=== PATIENT | male | born 1975 | race Caucasian/White ===

== ENCOUNTER 2024-06-20 09:26 | Emergency (ER) | payer OTHER, SELFPAY ==
[2024-06-20 09:31] VITALS: BP 177/127; PULSE 108; TEMP 36.8; O2SAT 98; BMI 29.0
--- NOTE | 2024-06-20 09:36 | US_ITS ---
[facility] [place] [id number] Patient Name: CAM GALINDO MRN: [id number] date: 1975 Sex: M Assigned Patient Location: ED.MAIN Current Patient Location: ED.MAIN Accession/Order Number: [id number] Exam Date: 06/20/2024 09:56 Report Date: 06/20/2024 10:51 At the request of: HUEY ODONNELL Procedure: US venous doppler LE LT EXAMINATION: US venous doppler LE LT HISTORY: Pain and swelling COMPARISON: No relevant comparison available. FINDINGS: REGION: Right lower extremity THROMBI: Occlusive thrombus within proximal great saphenous vein (superficial vein). Short segment of thrombus within distal anterior tibial veins. COMPRESSIBILITY: Noncompressible segments. FLOW: Normal waveform and antegrade flow between 5 and 20 cm/s within remainder of deep system. OTHER: (Findings and images discussed with lead injection mold technician.) US/US venous doppler LE LT IMPRESSION: 1. Short segment of deep vein thrombus within right lower extremity distal anterior tibial veins. 2. Occlusive thrombus within right great saphenous vein extending to the saphenofemoral junction which would be concerning for extending into the deep system. Electronically authenticated by: LAVELL AVILA Date: 06/20/2024 10:51
--- NOTE | 2024-06-20 09:43 | ED_ITS ---
HPI - Extremity Problem General Chief complaint: Extremity Problem, Nontraumatic Stated complaint: LOWER EXTREMITY SWOLLEN, LEFT Time Seen by Provider: 06/20/24 09:31 Source: patient Mode of arrival: walk-in History of Present Illness HPI Narrative: 49-year-old male presents for pain and swelling to the inside of his left thigh which she has had for the last day or 2. He gives no history of injury. He is worried about a blood clot which she has never had previously. No chest pain or shortness of breath or symptoms in the right leg. No symptoms in the left calf area. Related Data Previous Rx's ?Medication ?Instructions ?Recorded rivaroxaban 15 mg tablet (Xarelto) 15 mg PO BID 21 days #42 tabs 06/20/24 Allergies Allergy/AdvReac Type Severity Reaction Status Date / Time No Known Drug Allergies Allergy Verified 06/20/24 09:31 Review of Systems ROS Narrative A ten point review of systems is negative except as noted above. PFSH PFSH Social History Little interest or pleasure in doing things: not at all Feeling down, depressed, or hopeless: not at all Exam Narrative Exam Narrative: Nurses note and vital signs reviewed and patient is not hypoxic. General: The patient appears well and in no apparent distress. Patient is resting comfortably on cart. Skin: Warm, dry, no pallor noted. There is no rash noted. Head: Normocephalic, atraumatic Eye: Normal conjunctiva, no drainage Ears, Nose, Mouth, and Throat: oral mucosa is moist. Cardiovascular: Regular Rate and Rhythm Respiratory: Patient is in no distress, no accessory muscle use, lungs are cl ear to auscultation, no wheezing, rales or rhonchi Back: non-tender GI: Soft and nontender Musculoskeletal: The left calf has no swelling in the right leg has no swelling. The left medial thigh has some erythema and induration and what I believe is a palpable superficial vein which is firm. Neurological: A&O, normal speech Psychiatric: Cooperative Constitutional Vital Signs, click to edit/add: Last Vital Signs Temp 98.3 F 06/20/24 09:31 Pulse 108 H 06/20/24 09:31 Resp 18 06/20/24 11:46 BP 151/98 H 06/20/24 11:46 Pulse Ox 98 06/20/24 09:31 O2 Del Method Room Air 06/20/24 09:31 Course Vital Signs Vital signs: Vital Signs Temperature 98.3 F 06/20/24 09:31 Pulse Rate 108 H 06/20/24 09:31 Respiratory Rate 18 06/20/24 09:31 Blood Pressure 177/127 H 06/20/24 09:31 Pulse Oximetry 98 06/20/24 09:31 Oxygen Delivery Method Room Air 06/20/24 09:31 Temperature 98.3 F 06/20/24 09:31 Pulse Rate 108 H 06/20/24 09:31 Respiratory Rate 18 06/20/24 11:46 Blood Pressure 151/98 H 06/20/24 11:46 Pulse Oximetry 98 06/20/24 09:31 Oxygen Delivery Method Room Air 06/20/24 09:31 MDM - Extremity (Nontraumatic) MDM Narrative Medical decision making narrative: Small segment DVT is noted in the anterior tibial vein and superficial thrombophlebitis in the greater saphenous. I have paged Dr. Tatum and the patient will be discharged home on Xarelto. The patient was advised the risks of taking Xarelto and other blood thinners and was advised of the importance of follow-up with Dr. Tatum. Differential Diagnosis Differential diagnosis: Likely other (DVT, SVT) Lab Data Labs: Lab Results 06/20/24 Range/Units 09:40 WBC 14.0 H (4.0-11.0) 10^3/uL RBC 4.74 (4.70-6.10) 10^6/uL Hgb 15.5 (14.0-18.0) g/dL Hct 43.6 (42.0-54.0) % MCV 92.0 (80.0-94.0) fL MCH 32.7 (25.9-34.0) pg MCHC 35.6 H (29.9-35.2) g/dL RDW 12.9 (11.0-15.0) % Plt Count 267 (150-450) 10^3/uL MPV 10.3 (9.5-13.5) fL Neut % (Auto) 66.7 (43.0-75.0) % Lymph % (Auto) 23.5 (20.5-60.0) % Collier % (Auto) 7.6 (1.7-12.0) % Eos % (Auto) 1.4 (0.9-7.0) % Baso % (Auto) 0.5 (0.2-2.0) % Neut # (Auto) 9.3 H (1.4-6.5) 10^3/uL Lymph # (Auto) 3.3 (1.2-3.8) 10^3/uL Collier # (Auto) 1.1 H (0.3-0.8) 10^3/uL Eos # (Auto) 0.2 (0.0-0.7) 10^3/uL Baso # (Auto) 0.1 (0.0-0.1) 10^3/uL Abs Immat Gran (auto) 0.04 H (0.00-0.03) 10^3/uL Imm/Tot Granulo (auto) 0.3 (0.0-0.5) % PT 10.7 (9.0-11.6) sec INR 1.01 APTT 33.2 (22.3-36.2) sec Sodium 140 (136-145) mmol/L Potassium 3.8 (3.5-5.1) mmol/L Chloride 101 (98-107) mmol/L Carbon Dioxide 25.9 (21.0-32.0) mmol/L Anion Gap 16.9 BUN 17.0 (7.0-18.0) mg/dL Creatinine 1.01 (0.70-1.30) mg/dL Est GFR ( Amer) >60 (>=60 mL/min/1.73m^2) Est GFR (Non-Af Amer) >60 (>=60 mL/min/1.73m^2) BUN/Creatinine Ratio 16.8 Glucose 110 H (74-106) mg/dL Calcium 9.9 (8.5-10.1) mg/dL Imaging Data Venous Doppler: Radiologist's impression: ITS Impressions Venous Doppler Study 06/20/24 09:36 IMPRESSION: 1. Short segment of deep vein thrombus within right lower extremity distal anterior tibial veins. 2. Occlusive thrombus within right great saphenous vein extending to the saphenofemoral junction which would be concerning for extending into the deep system. Electronically authenticated by: LAVELL AVILA Date: 06/20/2024 10:51 Discharge Plan Discharge Chief Complaint: Extremity Problem, Nontraumatic Clinical Impression: DVT (deep venous thrombosis), Superficial thrombophlebitis Patient Disposition: Home, Self-Care Time of Disposition Decision: 13:10 Condition: Good Mode of Transportation: Private Vehicle Prescriptions / Home Meds: New Xarelto 15 mg tablet 15 mg PO BID 21 Days Qty: 42 0RF Rx Instructions: must administer with a meal/food Print Language: Cook Islander Instructions: Superficial Thrombophlebitis (ED), Deep Vein Thrombosis (ED) Additional Instructions: Follow-up with Dr. Tatum. You will need to see him for continued Xarelto prescription. Referrals: Shanelle Tatum MD [Physician] - 1 week Physician,Non-MD Ismael [Primary Care Provider] - 1 week
[2024-06-20 09:50] LABS: Basophils Absolute Auto 0.1 10^3/uL (0.0-0.1); Basophils Percent Auto 0.5 % (0.2-2.0); Eosinophils Absolute Auto 0.2 10^3/uL (0.0-0.7); Eosinophils Percent Auto 1.4 % (0.9-7.0); Hematocrit 43.6 % (42.0-54.0); Hemoglobin 15.5 g/dL (14.0-18.0); Immature Granulocytes Abs Auto 0.04 10^3/uL (0.00-0.03); Immature Granulocytes Pct Auto 0.3 % (0.0-0.5); Lymphocytes Absolute Auto 3.3 10^3/uL (1.2-3.8); Lymphocytes Percent Auto 23.5 % (20.5-60.0); Mean Corpuscular HGB Conc 35.6 g/dL (29.9-35.2); Mean Corpuscular Hemoglobin 32.7 pg (25.9-34.0); Mean Platelet Volume 10.3 fL (9.5-13.5); Monocytes Absolute Auto 1.1 10^3/uL (0.3-0.8); Monocytes Percent Auto 7.6 % (1.7-12.0); Neutrophils Absolute Auto 9.3 10^3/uL (1.4-6.5); Neutrophils Percent Auto 66.7 % (43.0-75.0); Platelet Count 267 10^3/uL (150-450); Red Blood Count 4.74 10^6/uL (4.70-6.10); Red Cell Distribution Width 12.9 % (11.0-15.0)
[2024-06-20 09:59] LABS: Anion Gap 16.9; BUN Creatinine Ratio 16.8; Calcium 9.9 mg/dL (8.5-10.1); Carbon Dioxide 25.9 mmol/L (21.0-32.0); Chloride 101 mmol/L (98-107); Estimated GFR (African America >60 (>=60 mL/min/1.73m^2); Estimated GFR (Non-African Ame >60 (>=60 mL/min/1.73m^2); Glucose 110 mg/dL (74-106); Potassium 3.8 mmol/L (3.5-5.1); Sodium 140 mmol/L (136-145)
[2024-06-20 10:08] LABS: INR 1.01; Partial Thromboplastin Time 33.2 sec (22.3-36.2); Prothrombin Time 10.7 sec (9.0-11.6)
--- NOTE | 2024-06-20 10:47 | PC.NURSE ---
pt denies current needs at this time. remains at bedside. pending results.
--- NOTE | 2024-06-20 10:56 | PC.NURSE ---
nursing report given to Elyssa CHIRINOS, all questions answered. pt pending dispo at this time.
[2024-06-20 11:46] VITALS: BP 151/98
== END 2024-06-20 13:41 | disposition home or self-care (01) ==
PROVIDERS: Emergency Provider Emergency Medicine
DX: I82.442 Acute embolism and thrombosis of left tibial vein (principal); I80.02 Phlebitis and thrombophlebitis of superficial vessels of left lower extremity
CPT/HCPCS: 36415; 80048; 85025; 85610; 85730; 93971; 99284

== ENCOUNTER 2024-06-21 09:31 | Inpatient (IN) | payer OTHER, SELFPAY ==
[2024-06-21] VITALS (15 sets, daily range): BP systolic 120–156; BP diastolic 81–99; PULSE 60–128; TEMP 36.7–37.8; O2SAT 88–100; BMI 29.0; BMI 28.7
--- NOTE | 2024-06-21 09:48 | CT_ITS ---
The [address] [address] Patient Name: CAM GALINDO MRN: [id number] date: 1975 Sex: M Assigned Patient Location: ER Current Patient Location: Accession/Order Number: [id number] Exam Date: 06/21/2024 10:10 Report Date: 06/21/2024 10:45 At the request of: ZOHREH SALMERON Procedure: CT angio chest EXAM: CT angio chest HISTORY: pe COMPARISON: None. TECHNIQUE: Following intravenous administration of 100 mL of Omnipaque 350, axial soft tissue and lung windows of the chest were performed with coronal and sagittal reformats. 3-D MIPS reconstructions were created and reviewed. CT dose reduction technique was used including Automated Exposure Control. . Findings: The heart is mildly enlarged. No pericardial effusion. The thoracic aorta is normal caliber. There is adequate opacification of the pulmonary arteries. There is a left upper lobe segmental pulmonary embolism extending into a subsegmental branch. The RV to LV ratio remains normal. The central airways are patent. No pneumothorax. No pleural effusion. No focal consolidation. Mild bilateral atelectasis. No enlarged mediastinal, hilar, axillary or supraclavicular lymph nodes. The no aggressive sclerotic or lytic osseous lesions. Multilevel degenerative thoracic spondylosis. Impression 1. Pulmonary embolism. The results of the study were discussed with Zohreh Salmeron at 1044 and 06/21/2024 Electronically authenticated by: JACOBY SIMMONS Date: 06/21/2024 10:45
[2024-06-21] MEDS: MORPHINE SULFATE 4 MG/ML VIAL IV (10:01)
--- NOTE | 2024-06-21 10:01 | ED.GENADUL1 ---
HPI HPI - General Adult General Chief complaint: Extremity Injury, Lower Stated complaint: LOWER EXTREMITY PAIN Time Seen by Provider: 06/21/24 09:33 Source: patient Mode of arrival: walk-in Limitations: no limitations History of Present Illness HPI narrative: Patient presents to ED complaining of left lower extremity pain. He was here yesterday for pain and swelling. He was diagnosed with a DVT and superficial thrombophlebitis. He was sent home on Xarelto. He said he was not sent home with anything for pain and he had trouble sleeping all night because the leg was tender. He came in tachycardic but not hypoxic. He is denying any chest pain or pain with breathing but his tachycardia is pretty significant. He has normal pulses in his foot and it is not cool to touch. He denies abdominal pain or any other complaints at this time, he just states he has pain in his thigh from the clot. Related Data Previous Rx's ?Medication ?Instructions ?Recorded rivaroxaban 15 mg tablet (Xarelto) 15 mg PO BID 21 days #42 tabs 06/20/24 Allergies Allergy/AdvReac Type Severity Reaction Status Date / Time No Known Drug Allergies Allergy Verified 06/20/24 09:31 Opioid HPI Opioid Management Most Recent Opioid Data: Last Pain Scale 4 06/21/24 10:09 06/21/24 Last ED Pain Assessment 06/21/24 10:09 Review of Systems ROS Status of ROS 10 or more systems reviewed and unremarkable except as noted in history and below PFSH PFSH Social History Little interest or pleasure in doing things: not at all Feeling down, depressed, or hopeless: not at all Exam Narrative Exam Narrative: General: alert, no acute distress Cardiovascular: Tachycardia, normal peripheral perfusion. Respiratory: Lungs CTA, respirations non labored. Extremities: Diffuse swelling to the left lower extremity. Normal distal pulses and sensation. Leg is warm to touch. 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 Neurological: oriented x 4, LOC appropriate for age. Constitutional Vital Signs, click to edit/add: Last Vital Signs Temp 98.1 F 06/21/24 09:37 Pulse 102 H 06/21/24 10:22 Resp 18 06/21/24 10:22 BP 146/99 H 06/21/24 10:22 Pulse Ox 96 06/21/24 10:22 Course Vital Signs Vital signs: Vital Signs Temperature 98.1 F 06/21/24 09:37 Pulse Rate 128 H 06/21/24 09:37 Respiratory Rate 18 06/21/24 09:37 Blood Pressure 156/98 H 06/21/24 09:37 Pulse Oximetry 100 06/21/24 09:37 Temperature 98.1 F 06/21/24 09:37 Pulse Rate 102 H 06/21/24 10:22 Respiratory Rate 18 06/21/24 10:22 Blood Pressure 146/99 H 06/21/24 10:22 Pulse Oximetry 96 06/21/24 10:22 Medical Decision Making MDM Narrative Medical decision making narrative: Patient was found to have a PE on the CT angio chest. Patient is stable, no right heart strain no hypotension. His heart rate has improved with pain medication down to 100. I spoke to Dr. Warren who is happy to admit the patient but also wanted me to run it by Dr. Tatum. I spoke to Dr. Tatum who states that he is fine to stay here. Heparin was started. Patient is comfortable with plan for admission here to [facility]. Patient will be admitted to medical telemetry floor. Differential Diagnosis Differential Diagnosis: PE, DVT, cellulitis, leg pain Medical Records Medical records reviewed: Yes I reviewed the patient's medical records Lab Data Lab results reviewed: Yes I reviewed the patient's lab results Critical Care Time Critical Care Time Critical Care Time: Yes Total Critical Care Time: 120 Attestation: PE, heparin bolus and drip started tachycardia. Discharge Plan Discharge Chief Complaint: Extremity Injury, Lower Clinical Impression: DVT (deep venous thrombosis), Pulmonary embolism Patient Disposition: Admitted As Inpatient Time of Disposition Decision: 12:42 Condition: Fair Prescriptions / Home Meds: No Action Xarelto 15 mg tablet 15 mg PO BID 21 Days Qty: 42 0RF Rx Instructions: must administer with a meal/food Print Language: Divehi Referrals: Physician,Non-Staff, MD [Primary Care Provider] - 1 week
[2024-06-21] MEDS: HEPARIN SODIUM 25,000 UNIT/500 ML D5W IV.SOLN 30 UNIT IV (11:08)
[2024-06-21] MEDS: HEPARIN SODIUM (PORCINE) 5,000 UNIT/ML VIAL 7600 UNIT IV (11:09)
--- NOTE | 2024-06-21 12:42 | ECG_ITS ---
[facility] Test Date: 2024-06-21 Pat Name: CAM GALINDO Department: Room: - Gender: Male Reporter: : 1975 Requested By: [id number] Order Number: [id number] Reading MD: ANAHY FERNANDEZ Measurements Intervals [place] Rate: 89 P: 37 [place]: 178 QRS: -2 QRSD: 84 T: 16 QT: 354 QTc: 401 Interpretive Statements 1100 Sinus rhythm 5211 Minimal voltage criteria for LVH, may be normal variant 9130 borderline ECG No previous ECG available for comparison Electronically Signed On 06-21-2024 20:09:29 EST by ANAHY FERNANDEZ
--- NOTE | 2024-06-21 12:46 | CA_ITS ---
Patient Name: CAM GALINDO MR#: [id number] : 1975 Exam Date: 06/21/2024 Ordering Doctor: Megan Warren . ECHOCARDIOGRAM REPORT PROCEDURE: CA ECHO DOPPLER COMPLETE INDICATIONS: Acute Pulmonary embolism, DVT COMPARISON: None. DESCRIPTION: COMPLETE ECHOCARDIOGRAM Real-time transthoracic echocardiography with 2D, M-mode, spectral and color flow Doppler performed. QUALITY: Technical quality was good. LEFT VENTRICLE: Normal chamber size. Moderate concentric left ventricular hypertrophy. Global left ventricular systolic function is normal. LV EF: Estimated left ventricular ejection fraction is 55-60 %. DIASTOLIC: Normal diastolic function. ATRIAL SEPTUM: LEFT ATRIUM: Normal chamber size. RIGHT ATRIUM: Normal chamber size. RIGHT VENTRICLE: Normal chamber size. Normal right ventricular systolic function. TRICUSPID VALVE: Normal mobility and thickness. No stenosis with trivial regurgitation. Unable to assess right-sided pressures due to lack of measurable tricuspid regurgitation. MITRAL VALVE: Normal mobility and thickness. No evidence of mitral valve stenosis. Mild mitral annular calcification. No mitral regurgitation. AORTIC VALVE: Normal trileaflet appearance. No visible sclerosis. Normal leaflet mobility. No evidence of aortic valve stenosis. No aortic regurgitation. AORTIC ROOT: Normal diameter and appearance. The ascending aorta is mildly dilated, measuring 3.8 cm. PULMONIC VALVE: Normal thickness and mobility. No stenosis. Trivial regurgitation. PERICARDIUM: No evidence of pericardial effusion. IVC: Collapses with inspirations. PLEURA: CONCLUSION: 1. Moderate concentric left ventricular hypertrophy with normal systolic function. LV EF is estimated at 55 to 60%. 2. Normal right ventricular size and systolic function. 3. Normal diastolic function. 4. No significant valvular dysfunction. 5. Mildly dilated ascending aorta. Adult Echocardiography Procedure Report Left Ventricle LVEDD (3.7 - 5.6 cm): 4.83 cm LVESD (2.2 - 4.0 cm): 3.39 cm LVIVS thickness (0.6 - 1.2 cm): 1.56 cm LVPW thickness (0.5 - 1.0 cm): 1.52 cm LVOT Max Gradient: 3 mm[Hg] Peak Velocity (LVOT): 84.40 cm/s Mean Velocity (LVOT): 55.80 cm/s LVOT Diameter 2.50 cm Left Ventricular Ejection Fraction: 55-60 % Left Atrium LA Volume Index (2D A2C): 14701 mm3 Left Atrium Systolic Dimension: 4.10 cm Mitral Valve MV E to A Ratio: 0.80 Mitral Valve A-Wave Peak Velocity: 62.80 cm/s Mitral Valve E-Wave Peak Velocity: 52.80 cm/s Right Ventricle Aorta AO Root Diam: 3.60 cm Aortic Valve AoV Area (Peak Justin): 4.06 cm2 AoV Area (VTI): 4.36 cm2 Peak Velocity(Antegrade Flow): 102.00 cm/s Peak Gradient(Antegrade Flow): 4 mm[Hg] Mean Velocity(Antegrade Flow): 73.90 cm/s Mean Gradient(Antegrade Flow): 3 mm[Hg] Velocity Time Integral: 16.00 cm Tricuspid Valve Peak Velocity (Regurgitant Flow): 238.00 cm/s Peak Velocity: 71.90 cm/s Pulmonic Valve Peak Velocity: 81.40 cm/s, 95.00 cm/s Peak Gradient: 3 mm[Hg] Right Atrium Dictated by: Aashish Rios M.D. on 06/21/2024 at 17:10 Approved by: Aashish Rios M.D. on 06/21/2024 at 17:13
--- NOTE | 2024-06-21 12:50 | PM.HP ---
HPI H&P: HPI History of Present Illness Chief complaint: LOWER EXTREMITY PAIN, PE, DVT Narrative: Patient is a 49 y.o white male with history of varicose veins, psoriasis that presented to the ER yesterday after 3 day history of left leg pain. He works at [employer] and had been up on it working, noticed some swelling and pain from the groin to the back of calf. Patient presented to the ER where ultrasound showed a Great Saphenous thrombus extending to the femoral vein. He filled and took 2 of the Xarelto, presented back to the ER today with increased swelling, pain and tachycardia. CTA of the chest was performed which showed acute PE of the left upper segment extending into the subsegmental branch. Patient was placed on a heparin drip. Trop 4.3, proBNP 13. He denies any family history of blood clots, he has never had a blood clot before. He is a smoker, no recent travel, no recent illnesses, has had COVID x 2. No recent drug use, no supplements, no recent procedures. No personal history of cancer. Opioid HPI Opioid Management Most Recent Pain and Opioid Data: Last Pain Scale 4 06/21/24 16:32 06/21/24 Last Pain Assessment 06/21/24 16:27 Last ED Pain Assessment 06/21/24 10:09 Last MAR Pain Assessment 06/21/24 16:32 Last ORT Total Score 0 06/21/24 13:03 06/21/24 Last ORT Risk Category Low Risk 06/21/24 13:03 06/21/24 Review of Systems ROS Narrative ROS: a complete review of systems were reviewed with patient and are positive as below or listed in History of Chief Complaint. General: no fever, chills, night sweats Head: no headache, trauma, visual changes, nausea or vomiting Skin: no reported rashes, itching or sores Eyes: no blurriness of vision Ears: no reported hearing loss, vertigo, earache, or tinnitus Throat: no sore throat, hoarseness, swelling of neck, or tongue pain Heart: no chest pain, but increased HR Lungs: no shortness of breath or cough GI: no diarrhea or vomiting/nausea Urinary: no urinary urgency, frequency or pain Neuro: no numbness or tingling, left leg pain HEM: no bleeding issues or bruising ENDO: no thyroid problems Psych: no anxiety or depression PFSH PFSH Medical History (Updated 06/21/24 @ 16:50 by Megan Warren DO) Tobacco abuse ?Z72.0 - Tobacco use (ICD-10) Psoriasis ?L40.9 - Psoriasis, unspecified (ICD-10) Social History Highest level of school completed/degree received: high school graduate Little interest or pleasure in doing things: not at all Feeling down, depressed, or hopeless: not at all Meds Home Medications and Allergies Home Medications ?Medication ?Instructions ?Recorded ?Confirmed ?Type rivaroxaban 15 mg tablet (Xarelto) 15 mg PO BID 21 days #42 tabs 06/20/24 06/21/24 Rx Allergies Allergy/AdvReac Type Severity Reaction Status Date / Time No Known Drug Allergies Allergy Verified 06/20/24 09:31 Exam Narrative Exam Narrative: General: Patient is alert, and oriented to person, place and time with normal affect, proper hygiene Skin: erythema and warmth on the right inner thigh that extends past the knee, and into the left calf Head: atraumatic, acephalic Eyes: PERRLA, no nystagmus present, conjunctiva clear, no scleral icterus Ears: normal Tympanic Membrane, normal gross auditory acuity Nose: symmetric, no discharge, no maxillary or frontal sinus tenderness Mouth/Throat: no erythema, exudate, or tonsillar enlargement, normal dentition Neck: no masses palpated, normal thyroid, no JVD or audible carotid bruits Heart: Normal rate and rhythm, no murmurs/rubs/gallops Lungs: no audible wheezes, crackles and normal breath sounds all lung marc Abdomen: Normal audible bowel sounds, no distension, No palpable masses, no organomegaly, no rebound/guarding/ or rigidity Neuro: CN II-X grossly intact, normal sensation upper and lower extremities Constitutional Vital Signs, click to edit/add: Last Vital Signs Temp 98.1 F 06/21/24 09:37 Pulse 102 H 06/21/24 10:22 Resp 18 06/21/24 10:22 BP 146/99 H 06/21/24 10:22 Pulse Ox 96 06/21/24 10:22 Assessment and Plan Assessment and Plan (1) Pulmonary embolism: Assessment and Plan: trop and proBNP negative, check ECHO, continue heparin drip. transition to Xarelto tomorrow. Will need close follow up with PCP for hypercoag work up, PSA and colonoscopy. Patient is encouraged to stop smoking. Qualifiers: Pulmonary embolism type: single subsegmental (without acute cor pulmonale) Qualified Code(s): I26.93 - Single subsegmental thrombotic pulmonary embolism without acute cor pulmonale (2) Superficial thrombophlebitis: Assessment and Plan: would benefit from compression but given the extent, treat with pain meds. Qualifiers: Superficial thrombophlebitis-Involved body area: lower extremity Laterality: left Qualified Code(s): I80.02 - Phlebitis and thrombophlebitis of superficial vessels of left lower extremity (3) DVT (deep venous thrombosis): Assessment and Plan: heparin drip and transition to Xarelto tomorrow Qualifiers: DVT location: lower extremity Affected thrombotic vein of extremity: femoral Chronicity: acute Laterality: left Qualified Code(s): I82.412 - Acute embolism and thrombosis of left femoral vein (4) Psoriasis: (5) Tobacco abuse: Plan Patient is a full code continue heparin drip Patient is inpatient status given his acute PE, and Acute DVT he is at high risk of respiratory decompensation and .
[2024-06-21 13:59] LABS: Basophils Absolute Auto 0.1 10^3/uL (0.0-0.1); Basophils Percent Auto 0.4 % (0.2-2.0); Eosinophils Absolute Auto 0.2 10^3/uL (0.0-0.7); Eosinophils Percent Auto 1.2 % (0.9-7.0); Hematocrit 46.4 % (42.0-54.0); Immature Granulocytes Abs Auto 0.04 10^3/uL (0.00-0.03); Immature Granulocytes Pct Auto 0.3 % (0.0-0.5); Lymphocytes Absolute Auto 3.2 10^3/uL (1.2-3.8); Lymphocytes Percent Auto 23.8 % (20.5-60.0); Mean Corpuscular HGB Conc 34.5 g/dL (29.9-35.2); Mean Corpuscular Hemoglobin 32.2 pg (25.9-34.0); Mean Corpuscular Volume 93.4 fL (80.0-94.0); Mean Platelet Volume 10.4 fL (9.5-13.5); Monocytes Absolute Auto 1.2 10^3/uL (0.3-0.8); Monocytes Percent Auto 8.8 % (1.7-12.0); Neutrophils Absolute Auto 8.8 10^3/uL (1.4-6.5); Neutrophils Percent Auto 65.5 % (43.0-75.0); Platelet Count 276 10^3/uL (150-450); Red Blood Count 4.97 10^6/uL (4.70-6.10); White Blood Count 13.4 10^3/uL (4.0-11.0)
[2024-06-21 14:26] LABS: Alanine Aminotransferase 24 U/L (16-63); Albumin Level 3.9 g/dL (3.4-5.0); Alkaline Phosphatase 92 U/L (46-116); Aspartate Amino Transferase 11 U/L (15-37); BUN Creatinine Ratio 12.7; Bilirubin Total 1.4 mg/dL (0.2-1.0); Calcium 9.8 mg/dL (8.5-10.1); Carbon Dioxide 26.2 mmol/L (21.0-32.0); Chloride 101 mmol/L (98-107); Estimated GFR (African America >60 (>=60 mL/min/1.73m^2); Estimated GFR (Non-African Ame >60 (>=60 mL/min/1.73m^2); Glucose 110 mg/dL (74-106); Potassium 4.2 mmol/L (3.5-5.1); Sodium 139 mmol/L (136-145); Thyroid Stimulating Hormone 2.126 uIU/mL (0.358-3.740); Total Protein 7.9 g/dL (6.4-8.2)
--- NOTE | 2024-06-21 14:26 | CM.NOTE ---
Went to see pt for discharge planning, echo being completed at this time.
[2024-06-21] MEDS: OXYCODONE HCL/ACETAMINOPHEN 5MG/325MG 1 TAB PO ×2 (14:34→20:13)
--- NOTE | 2024-06-21 14:54 | CM.NOTE ---
Discussed discharge planning with pt, pt still working since DVT initially diagnosed but struggling with pain in lower leg. Pt was taking Xarelto at home for DVT but pain had increased. Pt denies any discharge needs at this time.
[2024-06-21 15:03] LABS: Troponin I High Sensitivity 4.3 pg/mL (4.0-76.1)
[2024-06-21] MEDS: MORPHINE SULFATE 2 MG/ML SYRINGE 1 MG IV ×2 (17:23→23:20)
[2024-06-21 17:37] LABS: PTT Heparin Monitor 44.4 sec (48.2-68.6)
[2024-06-21] MEDS: ACETAMINOPHEN 325 MG TABLET 650 MG PO (20:08)
[2024-06-21 23:45] LABS: PTT Heparin Monitor 42.7 sec (48.2-68.6)
[2024-06-22] VITALS (13 sets, daily range): BP systolic 121–136; BP diastolic 82–88; PULSE 82–98; TEMP 36.7–37.6; O2SAT 91–94
[2024-06-22] MEDS: HEPARIN SODIUM 25,000 UNIT/500 ML D5W IV.SOLN 34 UNIT IV (03:32)
[2024-06-22] MEDS: OXYCODONE HCL/ACETAMINOPHEN 5MG/325MG 1 TAB PO ×2 (03:32→10:22)
[2024-06-22 06:11] LABS: Basophils Absolute Auto 0.1 10^3/uL (0.0-0.1); Basophils Percent Auto 0.7 % (0.2-2.0); Eosinophils Absolute Auto 0.2 10^3/uL (0.0-0.7); Hematocrit 45.1 % (42.0-54.0); Hemoglobin 15.4 g/dL (14.0-18.0); Immature Granulocytes Abs Auto 0.03 10^3/uL (0.00-0.03); Immature Granulocytes Pct Auto 0.3 % (0.0-0.5); Lymphocytes Absolute Auto 2.5 10^3/uL (1.2-3.8); Lymphocytes Percent Auto 23.5 % (20.5-60.0); Mean Corpuscular HGB Conc 34.1 g/dL (29.9-35.2); Mean Corpuscular Hemoglobin 31.9 pg (25.9-34.0); Mean Corpuscular Volume 93.4 fL (80.0-94.0); Mean Platelet Volume 10.3 fL (9.5-13.5); Monocytes Percent Auto 9.3 % (1.7-12.0); Neutrophils Absolute Auto 6.9 10^3/uL (1.4-6.5); Neutrophils Percent Auto 64.2 % (43.0-75.0); Platelet Count 262 10^3/uL (150-450); Red Blood Count 4.83 10^6/uL (4.70-6.10); Red Cell Distribution Width 13.2 % (11.0-15.0); White Blood Count 10.8 10^3/uL (4.0-11.0)
[2024-06-22 06:28] LABS: Alanine Aminotransferase 21 U/L (16-63); Albumin Globulin Ratio 0.8; Albumin Level 3.3 g/dL (3.4-5.0); Alkaline Phosphatase 85 U/L (46-116); Anion Gap 13.8; Aspartate Amino Transferase 11 U/L (15-37); BUN Creatinine Ratio 15.2; Bilirubin Total 1.1 mg/dL (0.2-1.0); Calcium 8.8 mg/dL (8.5-10.1); Carbon Dioxide 25.6 mmol/L (21.0-32.0); Chloride 101 mmol/L (98-107); Cholesterol 148 mg/dL (<=200); Estimated GFR (African America >60 (>=60 mL/min/1.73m^2); Estimated GFR (Non-African Ame >60 (>=60 mL/min/1.73m^2); Globulin 3.9 g/dL; Glucose 123 mg/dL (74-106); HDL Cholesterol 37 mg/dL (40-60); Potassium 4.4 mmol/L (3.5-5.1); Sodium 136 mmol/L (136-145); Total Protein 7.2 g/dL (6.4-8.2); Triglycerides 133 mg/dL (<=150); VLDL CHOLESTEROL 26.6 mg/dL
[2024-06-22 06:31] LABS: PTT Heparin Monitor 50.7 sec (48.2-68.6)
[2024-06-22] MEDS: RIVAROXABAN 10 MG TABLET 15 MG PO (08:30)
--- NOTE | 2024-06-22 08:57 | P.DS_ITS ---
DS: Providers Provider Date of admission: 06/21/24 12:53 Primary care physician: Non-Staff Physician, DS: Diagnosis Discharge Diagnosis (1) Pulmonary embolism: Qualifiers: Pulmonary embolism type: single subsegmental (without acute cor pulmonale) Qualified Code(s): I26.93 - Single subsegmental thrombotic pulmonary embolism without acute cor pulmonale (2) Superficial thrombophlebitis: Qualifiers: Laterality: left Superficial thrombophlebitis-Involved body area: lower extremity Qualified Code(s): I80.02 - Phlebitis and thrombophlebitis of superficial vessels of left lower extremity (3) DVT (deep venous thrombosis): Qualifiers: Affected thrombotic vein of extremity: femoral Chronicity: acute DVT location: lower extremity Laterality: left Qualified Code(s): I82.412 - Acute embolism and thrombosis of left femoral vein (4) Psoriasis: (5) Tobacco abuse: (6) Dilatation of aorta: DS: Summary Hospital Course Hospital Course: Patient is a 49 y.o white male with history of varicose veins, psoriasis that presented to the ER yesterday after 3 day history of left leg pain. He works at [employer] and had been up on it working, noticed some swelling and pain from the groin to the back of calf. Patient presented to the ER where ultrasound showed a Great Saphenous thrombus extending to the femoral vein. He filled and took 2 of the Xarelto, presented back to the ER today with increased swelling, pain and tachycardia. CTA of the chest was performed which showed acute PE of the left upper segment extending into the subsegmental branch. Patient was placed on a heparin drip. Trop 4.3, proBNP 13. He denies any family history of blood clots, he has never had a blood clot before. He is a smoker, no recent travel, no recent illnesses, has had COVID x 2. No recent drug use, no supplements, no recent procedures. No personal history of cancer. He was maintained on heparin drip overnight, Xarelto was started at 15mg BID this morning. Heparin drip stopped. Patient has done well on room air. Pain is controlled on the [place] will provide at discharge. Thyroid, cholesterol, were all normal ECHO was normal with exception of mild dilation of the Aorta at 3.8cm. This was all discussed with patient and . I have provided him with written prescription for compression stockings and als told him about LANDRY wrap He will have close follow up with Dr. Tatum, vascular and his pcp. he may return to the ER with any worsening signs or symptoms. Status at Discharge Functional status at discharge: independent ambulation Overall status at discharge: patient is progressing back to baseline Time Spent with Patient Time attestation: Total time spent providing and/or coordinating discharge services: Time spent: greater than 30 minutes Exam Narrative Exam Narrative: General: Patient is alert, and oriented to person, place and time with normal affect, proper hygiene Skin: erythema and warmth on the right inner thigh that extends past the knee, and into the left calf Head: atraumatic, acephalic Eyes: PERRLA, no nystagmus present, conjunctiva clear, no scleral icterus Ears: normal Tympanic Membrane, normal gross auditory acuity Nose: symmetric, no discharge, no maxillary or frontal sinus tenderness Mouth/Throat: no erythema, exudate, or tonsillar enlargement, normal dentition Neck: no masses palpated, normal thyroid, no JVD or audible carotid bruits Heart: Normal rate and rhythm, no murmurs/rubs/gallops Lungs: no audible wheezes, crackles and normal breath sounds all lung marc Abdomen: Normal audible bowel sounds, no distension, No palpable masses, no organomegaly, no rebound/guarding/ or rigidity Neuro: CN II-X grossly intact, normal sensation upper and lower extremities Constitutional Vital Signs, click to edit/add: Last Vital Signs Temp 99.6 F 06/22/24 08:02 Pulse 98 H 06/22/24 08:02 Resp 16 06/22/24 08:02 BP 121/82 06/22/24 08:02 Pulse Ox 93 L 06/22/24 08:02 O2 Del Method Nasal Cannula 06/22/24 08:02 O2 Flow Rate 2 06/22/24 08:02 DS: Data Data Completed and Pending Labs on day of discharge: Labs from last 24 hours 06/22/24 06/21/24 06/21/24 05:56 23:01 17:03 WBC 10.8 RBC 4.83 Hgb 15.4 Hct 45.1 MCV 93.4 MCH 31.9 MCHC 34.1 RDW 13.2 Plt Count 262 MPV 10.3 Neut % (Auto) 64.2 Lymph % (Auto) 23.5 Hardee % (Auto) 9.3 Eos % (Auto) 2.0 Baso % (Auto) 0.7 Neut # (Auto) 6.9 H Lymph # (Auto) 2.5 Hardee # (Auto) 1.0 H Eos # (Auto) 0.2 Baso # (Auto) 0.1 Abs Immat Gran (auto) 0.03 Imm/Tot Granulo (auto) 0.3 PTT (Heparin Absorb) 50.7 42.7 L* 44.4 L* Sodium 136 Potassium 4.4 Chloride 101 Carbon Dioxide 25.6 Anion Gap 13.8 BUN 14.0 Creatinine 0.92 Est GFR ( Amer) >60 Est GFR (Non-Af Amer) >60 BUN/Creatinine Ratio 15.2 Glucose 123 H Calcium 8.8 Magnesium Total Bilirubin 1.1 H AST 11 L ALT 21 Alkaline Phosphatase 85 Troponin I High Sens NT-Pro-B Natriuret Pep Total Protein 7.2 Albumin 3.3 L Globulin 3.9 Albumin/Globulin Ratio 0.8 Triglycerides 133 Cholesterol 148 LDL Cholesterol, Calc 85.0 VLDL Cholesterol 26.6 HDL Cholesterol 37 L Cholesterol/HDL Ratio 4.0 TSH 06/21/24 13:30 WBC 13.4 H RBC 4.97 Hgb 16.0 Hct 46.4 MCV 93.4 MCH 32.2 MCHC 34.5 RDW 13.0 Plt Count 276 MPV 10.4 Neut % (Auto) 65.5 Lymph % (Auto) 23.8 Hardee % (Auto) 8.8 Eos % (Auto) 1.2 Baso % (Auto) 0.4 Neut # (Auto) 8.8 H Lymph # (Auto) 3.2 Hardee # (Auto) 1.2 H Eos # (Auto) 0.2 Baso # (Auto) 0.1 Abs Immat Gran (auto) 0.04 H Imm/Tot Granulo (auto) 0.3 PTT (Heparin Absorb) Sodium 139 Potassium 4.2 Chloride 101 Carbon Dioxide 26.2 Anion Gap 16.0 BUN 13.0 Creatinine 1.02 Est GFR ( Amer) >60 Est GFR (Non-Af Amer) >60 BUN/Creatinine Ratio 12.7 Glucose 110 H Calcium 9.8 Magnesium 2.0 Total Bilirubin 1.4 H AST 11 L ALT 24 Alkaline Phosphatase 92 Troponin I High Sens 4.3 NT-Pro-B Natriuret Pep 13.0 Total Protein 7.9 Albumin 3.9 Globulin 4.0 Albumin/Globulin Ratio 1.0 Triglycerides Cholesterol LDL Cholesterol, Calc VLDL Cholesterol HDL Cholesterol Cholesterol/HDL Ratio TSH 2.126 Discharge Plan Discharge Disposition: Home, Self-Care Condition: Fair Discharge Medications: New hydrocodone-acetaminophen 5-325 mg tablet 1 tab PO Q8H PRN (Reason: pain) 3 Days Qty: 9 0RF Rx Instructions: for severe leg pain from acute DVT Continued Xarelto 15 mg tablet 15 mg PO BID 21 Days Qty: 42 0RF Rx Instructions: must administer with a meal/food Activity: increase activity as tolerated and return to work once cleared by your PCP/specialist Diet: advance to your usual diet Print Language: Swedish Patient Instructions: Pulmonary Embolism (DC), Deep Vein Thrombosis (DC) Forms: Portal Instructions Follow Up Appointments: Follow up with Dr. Tatum on 07/13/24 at 11:30 at [facility] phone number [phone]
--- NOTE | 2024-06-22 11:38 | CM.NOTE ---
Rounds made with Dr. Warren, pt will discharge to home today and f/u with PCP and Dr. Tatum (Vascular). MS service secretary will make appt for pt. Dr. Warren discussed with pt about Xarelto at discharge and LANDRY wrapping LLE.
--- NOTE | 2024-06-23 13:04 | CM.DCFOLLOWU ---
Person spoke with:patient How are you feeling?well How is your pain?still pain, just starting to take his pain medication that was prescribed to help with pain Did you understand your discharge instructions?yes Do you have any questions about your discharge instructions?no Were you given any prescriptions at discharge?yes Were you able to get your prescriptions filled?yes Do you understand how to take your medications as ordered?yes Do you have any questions about your follow up appointment and do you plan to keep your follow up appointment? no questions, follow up reviewed (in chart it says f/u with Dr. Pereira on 07/26, which is incorrect, on pt's paper it was fixed to 06/26) Is there anything else that you would like to discuss?no Questions/Comments/Concerns/Other:none
== END 2024-06-22 14:36 | disposition home or self-care (01) | DRG 299 ==
LOC: ER 12:42 → MS 13:01
PROVIDERS: Admitting Provider Family Medicine; Emergency Provider Emergency Medicine; Visit Provider Family Medicine
DX: I82.412 Acute embolism and thrombosis of left femoral vein (principal); I26.93 Single subsegmental thrombotic pulmonary embolism without acute cor pulmonale; L40.9 Psoriasis, unspecified; F17.200 Nicotine dependence, unspecified, uncomplicated; I77.819 Aortic ectasia, unspecified site; Z86.16 Personal history of COVID-19
CPT/HCPCS: 36415; 71275; 80053; 80061; 83735; 83880; 84443; 84484; 85025; 85730; 93005; 93306; 94761; 96365; 96366; 96375; 96376; 99285; J1644; J2270

== ENCOUNTER 2024-08-10 07:36 | Outpatient (RCR) | payer OTHER, SELFPAY ==
--- OUTSIDE RECORDS SUMMARY | 2024-08-14 08:53 | XMS_ITS | CCD ---
Author Organization [facility] [place] [facility] Care Team Providers Care Strike Off Machine Operator Name Role Phone No Pcp, No Pcp Primary Care Provider Unavailabl e Medications Current Medications Medication Drug Class(es) Dates Sig (Normalized) Sig (Original) apremilast 30 mg oral tablet (1 source) take 1 tablet by mouth twice daily apremilast (OTEZLA) 30 mg tablet Take 30 mg by mouth 2 (two) times a day. Active benzocaine 6 mg / menthol 10 mg oral lozenge (1 source) Standardized Chemical Allergen Start: 09-02-2020 take 1 tablet by mouth every two hours as needed benzocaine-mentho L (CHLORASEPTIC SORE THROAT) 6-10 mg lozenge Dissolve 1 lozenge in the mouth every 2 (two) hours as needed for sore throat. 18 tablet 09/02/2020 Active irbesartan 150 mg oral tablet (1 source) Angiotensin 2 Receptor Peter Start: 06-26-2024 take 1 tablet by mouth in the morning irbesartan (AVAPRO) 150 mg tablet Take 1 tablet (150 mg total) by mouth in the morning. 06/26/2024 Active rivaroxaban 20 mg oral tablet (1 source) Factor Xa Inhibitor Start: 07-10-2024 take 1 tablet by mouth in the morning XARELTO 20 mg tablet tablet Take 1 tablet (20 mg total) by mouth in the morning. 07/10/2024 Active Problems Problem Classification Problem Date Documented Da te Episodic/Chronic Phlebitis; thrombophlebitis and thromboembolism (3 sources) Deep venous thrombosis of lower extremity; Translations: [Acute embolism and thrombosis of unspecified deep veins of unspecified proximal lower extremity] Onset: 07-13-2024 07-13-2024 Episodic Pulmonary heart disease (3 sources) Pulmonary embolism; Translations: [Other pulmonary embolism without acute cor pulmonale] Onset: 07-13-2024 07-13-2024 Episodic Vital Signs Date Time Vital Sign Value Performing Clinician Faci lity 07-13-2024 11:37-0500 Body height 193 cm Shanelle Tatum MD Work Phone: [facility] 07-13-2024 11:37-0500 Body mass index (BMI) [Ratio] 27.4 kg/m2 Shanelle Tatum MD Work Phone: [facility] 07-13-2024 11:37-0500 Body temperature 97.7 [degF] Shanelle Tatum MD Work Phone: [facility] 07-13-2024 11:37-0500 Body weight 102.06 kg Shanelle Tatum MD Work Phone: [facility] 07-13-2024 11:37-0500 Diastolic blood pressure 78 mm[Hg] Shanelle Tatum MD Work Phone: [facility] 07-13-2024 11:37-0500 Heart rate 104 /min Shanelle Tatum MD Work Phone: [facility] 07-13-2024 11:37-0500 Respiratory rate 16 /min Shanelle Tatum MD Work Phone: [facility] 07-13-2024 11:37-0500 SaO2% (BldA) [Mass fraction] 97 % Shanelle Tatum MD Work Phone: [facility] 07-13-2024 11:37-0500 Systolic blood pressure 128 mm[Hg] Shanelle Tatum MD Work Phone: [facility] Encounters Encounter Date Encounter Type Care Provider Facility Start: 07-13-2024 End: 07-13-2024 Office outpatient new 45 minutes Shanelle Tatum MD Work Phone: [facility] Comment on above: Pulmonary embolism, other, unspecified chronicity, unspecified whether acute cor pulmonale present ([facility]); Deep vein thrombosis (DVT) of proximal lower extremity, unspecified chronicity, unspecified laterality ([facility]) Plan of Treatment Date Care Activity Detail Author Start: 04-02-2024 Influenza vaccination Influenza Vacc ine [facility] Start: 1994 DTaP,Tdap and Td Vaccines (1 - Tdap) DTaP,Tdap and Td Vaccines (1 - Tdap) [facility] Start: 1993 Adult BMI Follow Up Plan Adult BMI Follow Up Plan [facility] Start: 1993 Adult BMI Screening Adult BMI Screen ing [facility] Start: 1987 Depression Screening Depression Scre ening [facility] Start: 1987 Tobacco Screening Tobacco Screening [facility] Payers Date Payer Category Payer Managed Care Other (unspecified) [employer] [id number] Social History Date Type Detail Facility Start: 09-02-2020 [facility] History of tobacco use Cigarette Smoker [facility] Start: 09-02-2020 Tobacco use and exposure Smoke less tobacco non-user [facility] Start: 09-02-2020 Alcoholic beverage intake Life time non-drinker (finding) [facility] Start: 09-02-2020 End: 07-13-2024 History of Social function [facility] Start: 09-02-2020 End: 07-13-2024 Alcohol Use Disorder Identification Test - Consumption [AUDIT-C] [facility] How often to you hav e a drink containing alcohol? Never [facility] Average Number of Drinks Not on file [facility] Start: 1975 Sex assigned at Not on file [facility] Start: 03-07-2015 Sex Male (finding) [facility] Evaluation + Plan note 07-13-2024 Assessment & Plan Note - Shanelel Tatum MD - 07/13/2024 2:18 PM EST Note Date & Type Note Facility 07-13-2024 Evaluation + Plan note Associated Problem(s): Pulmonary embolism (CMS-HCC) Continue anticoagulation and follow up with Heme-Onc in regard to hypercoagulability testing. [facility] Evaluation + Plan note 07-13-2024 Assessment & Plan Note - Shanelle Tatum MD - 07/13/2024 2:18 PM EST Note Date & Type Note Facility 07-13-2024 Evaluation + Plan note Associated Problem(s): Deep vein thrombosis (DVT) of proximal lower extremity (CMS-HCC) Continue anticoagulation. Follow up with Heme-Onc for hypercoagulability testing. [facility] Note 07-13-2024 Assessment & Plan Note - Shanelle Tatum MD - 07/13/2024 2:18 PM ESTAssessment & Plan Note - Shanelle Tatum MD - 07/13/2024 2:18 PM EST Note Date & Type Note Facility 07-13-2024 Miscellaneous Notes Associated Problem(s): Pulmonary embolism (CMS-HCC) Continue anticoagulation and follow up with Heme-Onc in regard to hypercoagulability testing. Associated Problem(s): Deep vein thrombosis (DVT) of proximal lower extremity (CMS-HCC) Continue anticoagulation. Follow up with Heme-Onc for hypercoagulability testing. documented in this encounter [facility] History of Present illness Narrative 07-13-2024 Shanelle Tatum MD - 07/13/2024 11:30 AM EST Note Date & Type Note Facility 07-13-2024 History of Present illness Narrative Images from the original note were not included. To: NO PCP, NO PCP HPI: Fran Delarosa is a 49 y.o. male with first-time and provoked DVT and PE. A were below-knee DVT and superficial thrombophlebitis with PE. He has been on anticoagulation. He is doing well. He does not have any hypercoagulability testing. No previous history of DVT in the past. No clear provoking factor. He lives at [place] and it was like to see [place] [facility] in regard to his hypercoagulability testing.. Review of Systems: Review of Systems Constitutional: Negative. HENT: Negative. Respiratory: Negative. Cardiovascular: Negative. Gastrointestinal: Negative. Endocrine: Negative. Genitourinary: Negative. Musculoskeletal: Negative. Skin: Negative. Neurological: Negative. Hematological: Negative. Medications: Current Outpatient Medications on File Prior to Visit Medication Sig Dispense Refill benzocaine-menthoL (CHLORASEPTIC SORE THROAT) 6-10 mg lozenge Dissolve 1 lozenge in the mouth every 2 (two) hours as needed for sore throat. 18 tablet 0 irbesartan (AVAPRO) 150 mg tablet Take 1 tablet (150 mg total) by mouth in the morning. XARELTO 20 mg tablet tablet Take 1 tablet (20 mg total) by mouth in the morning. apremilast (OTEZLA) 30 mg tablet Take 30 mg by mouth 2 (two) times a day. (Patient not taking: Reported on 07/13/2024) No current facility-administered medications on file prior to visit. Past Medical History: No past medical history on file. Past Surgical History: No past surgical history on file. Social and Family History: Social History Socioeconomic History Marital status: Spouse name: Not on file Number of children: Not on file Years of education: Not on file Highest education level: Not on file Occupational History Not on file Tobacco Use Smoking status: Every Day Current packs/day: 0.50 Types: Cigarettes Smokeless tobacco: Never Substance and Sexual Activity Alcohol use: Never Drug use: Never Sexual activity: Defer Other Topics Concern Not on file Social History Narrative Not on file Social Drivers of Health Financial Resource Strain: Not on file Food Insecurity: No Food Insecurity (07/13/2024) Hunger Screening Food Insecurity - Worry: Never True Food Insecurity - Inability: Never True Transportation Needs: Not on file Physical Activity: Not on file Stress: Not on file Social Connections: Not on file Interpersonal Safety: Not on file Housing Instability: Not on file No family history on file. Recent Labs: Recent and relative labs were reviewed and interpreted and contributed to the assessment and plan below. Vitals: BP 128/78 (BP Site: Right Arm, BP Postition: Sitting, BP CUFF SIZE: M (9-13 inches)) Pulse 104 Temp 36.5 C (97.7 F) (Temporal) Resp 16 Ht 193 cm (6' 3.98 ) Wt 102.1 kg (225 lb) SpO2 97% BMI 27.40 kg/m Body mass index is 27.4 kg/m . Physical Exam: Physical Exam Constitutional: Appearance: Normal appearance. HENT: Head: Normocephalic and atraumatic. Mouth/Throat: Mouth: Mucous membranes are moist. Eyes: Extraocular Movements: Extraocular movements intact. Pupils: Pupils are equal, round, and reactive to light. Cardiovascular: Rate and Rhythm: Normal rate and regular rhythm. Pulmonary: Effort: Pulmonary effort is normal. Breath sounds: Normal breath sounds. Abdominal: General: Abdomen is flat. Bowel sounds are normal. Palpations: Abdomen is soft. Musculoskeletal: General: Normal range of motion. Cervical back: Normal range of motion. Skin: General: Skin is warm and dry. Neurological: General: No focal deficit present. Mental Status: He is alert and oriented to person, place, and time. Mental status is at baseline. Psychiatric: Mood and Affect: Mood normal. Behavior: Behavior normal. Thought Content: Thought content normal. Judgment: Judgment normal. Recent testing: Ultrasound and a CTA chest Assessment and Plan: Problem List Pulmonary embolism (CMS-HCC) Current Assessment & Plan Continue anticoagulation and follow up with Heme-Onc in regard to hypercoagulability testing. Relevant Orders [facility] [place] [place] Deep vein thrombosis (DVT) of proximal lower extremity (CMS-HCC) Current Assessment & Plan Continue anticoagulation. Follow up with Heme-Onc for hypercoagulability testing. Relevant Orders [facility] [place] [place] Fran was seen today for new patient for pe and dvt lower extremity. Diagnoses and all orders for this visit: Pulmonary embolism, other, unspecified chronicity, unspecified whether acute cor pulmonale present ([facility]) - [facility] [place] [place] - [facility] [place], [place]; Future Deep vein thrombosis (DVT) of proximal lower extremity, unspecified chronicity, unspecified laterality ([facility]) - [facility] [place] [place] - [facility] [place] [place]; Future Shanelle Tatum MD, FRIEDA, RPVI, FSVS, FACS [facility] This note was created with the assistance of a speech recognition program. While intending to generate a timely document that accurately reflects the content of the visit, no guarantee can be provided that every grammatical or spelling mistake has been or will be identified or corrected. Thank you for your understanding. documented in this encounter [facility] Evaluation note Note Date & Type Note Facility Evaluation note Diagnosis Pulmonary embolism, other, unspecified chronicity, unspecified whether acute cor pulmonale present ([facility]) Deep vein thrombosis (DVT) of proximal lower extremity, unspecified chronicity, unspecified laterality ([facility]) documented in this encounter [facility] Instructions Note Date & Type Note Facility Instructions Not on filedocumented in this en counter [facility] Additional Source Comments Reason for Visit (unrecogniz ed section and content) Reason Comments New patient for Pe and Dvt lower extremi ty Only pain is when standing for long period of time rates 4/10 left leg Specialty Diagnoses / Procedures Referred By Contac t Referred To Contact Vascular Surgery Diagnoses Pulmonary embolism, other, unspecified chronicity, unspecified whether acute cor pulmonale present ([facility]) Deep vein thrombosis (DVT) of proximal lower extremity, unspecified chronicity, unspecified laterality ([facility]) Zohreh Olvera DO Osman, Shanelle Martinez MD [facility] [place] [address] Phone: tel:[phone] fax: Referral ID Status Reason Start Date Expiration Date Visits Requested Visits Authorized [id number] Pending Review Specialty Services Required 4 06/22/2025 1 1 Care Teams (unrecognized sec tion and content) Strike Off Machine Operator Relationship Specialty Start Date End Date No Pcp, [place] [id number] PCP - General Family Medicine 09/02/20 FOR RECORDS PERTAINING TO PATIENTS WHO ARE OR HAVE BEEN ENROLLED IN A CHEMICAL DEPENDENCY/SUBSTANCEABUSE PROGRAM, SOME INFORMATION MAY BE OMITTED. This clinical summary was aggregated from multiple sources. Caution should be exercised in using it in the provision of clinical care. This summary normalizes information from multiple sources, and as a consequence, information in this document may materially change the coding, format and clinical context of patient data. In addition, data may be omitted in some cases. CLINICAL DECISIONS SHOULD BE BASED ON THE PRIMARY CLINICAL RECORDS. [facility]. provides no warranty or guarantee of the accuracy or completeness of information in this document.
[2024-08-15 15:11] LABS: Beta-2 Glycoprotein I Ab, IgA <9 (0-25); Beta-2 Glycoprotein I Ab, IgG <9 (0-20); Beta-2 Glycoprotein I Ab, IgM <9 (0-32)
== END 2024-09-01 23:59 | disposition home or self-care (01) ==
LOC: HEMC 07:36
PROVIDERS: Visit Provider Internal Medicine Hematology & Oncology
DX: I26.99 Other pulmonary embolism without acute cor pulmonale (principal); I82.402 Acute embolism and thrombosis of unspecified deep veins of left lower extremity; F17.210 Nicotine dependence, cigarettes, uncomplicated; L97.921 Non-pressure chronic ulcer of unspecified part of left lower leg limited to breakdown of skin; Z80.42 Family history of malignant neoplasm of prostate; L40.9 Psoriasis, unspecified; Z79.01 Long term (current) use of anticoagulants
CPT/HCPCS: 36415; 81240; 81241; 86146; 86147; G0463

== ENCOUNTER 2024-12-26 09:01 | Outpatient (OUT) | payer OTHER, SELFPAY ==
--- OUTSIDE RECORDS SUMMARY | 2024-09-14 04:30 | XMS_ITS ---
Author Organization The [facility] in [place] Address [address] [place] [address] Care Team Providers Care College Recruiter Name Role Phone Angelica Porras Primary Care Provider Kimberly Qureshi Unavailable [phone] REASON FOR VISIT MD Encounters Encounter Location Date Provider Diagnosis [facility] [address] [place] [phone] 09/14/2024 Kimberly Qureshi Plan Of Treatment Next Appt Details Provider Name:Kimberly Qureshi , 01/09/2025 09:15:00 AM, [address] [place], [address], Progress Notes * Fran DELAROSA EDOB:1975 (49 yo M)Acc No.[id number]:09/14/2024 UNLOCKED PROGRESS NOTE Progress Notes Patient: Fran GAO Provider: Alona Qureshi M.D. :1975 A ge:49 Y S ex:Male Date:09/14/2024 Address:[address] [place], [place] [id number] Pcp:Angelica Porras Subjective: * Chief Complaints: * 1 . MD. * Medical History: Objective: * Vitals: Assessment: Plan: * Treatment: * * Electronic signature of Crow Qureshi MD, [id number] on 12/26/2024 at 09:03 AM EDT Sign off status: Pending Visit Status: C ANC (Cancelled) * Provider: Alona Qureshi M.D. Date: 0 09/14/2024 Generated for Lola miranda/Maikel/Joshua on: 0 12/26/2024 09:03 AM EDT
--- OUTSIDE RECORDS SUMMARY | 2024-09-14 07:00 | XMS_ITS ---
Author Organization The [facility] in [place] Address [address] [place] [address] Care Team Providers Care Reconciliation Analyst Name Role Phone Angelica Porras Primary Care Provider Kimberly Qureshi [phone] REASON FOR VISIT MD TELEHEALTH Encounters Encounter Location Date Provider Diagnosis [facility] On[facility] [address] [place] [phone] 09/14/2024 Kimberly Qureshi Plan Of Treatment Next Appt Details Provider Name:Kimberly Qureshi , 01/09/2025 09:15:00 AM, [address] [place], [address], Progress Notes * Fran DELAROSA EDOB:1975 (49 yo M)Acc No.[id number]:09/14/2024 UNLOCKED PROGRESS NOTE Progress Notes Patient: Fran GAO Provider: Alona Qureshi M.D. :1975 A ge:49 Y S ex:Male Date:09/14/2024 Address:[address] [place], [place] [id number] Pcp:Angelica Porras Subjective: * Chief Complaints: * 1 . TELEHEALTH. * Medical History: Objective: * Vitals: Assessment: Plan: * Treatment: * * Electronic signature of Crow Qureshi MD, [id number] on 12/26/2024 at 09:03 AM EDT Sign off status: Pending Visit Status: P EN (Pending) * Provider: Alona Qureshi M.D. Date: 0 09/14/2024 Generated for Lola miranda/Maikel/Joshua on: 0 12/26/2024 09:03 AM EDT
--- OUTSIDE RECORDS SUMMARY | 2024-12-26 07:30 | XMS_ITS ---
Author Organization The [facility] in [place] Address [address] [place] [address] Care Team Providers Care Roastmaster Name Role Phone Angelica Porras Primary Care Provider Kimberly Qureshi [phone] REASON FOR VISIT MD Encounters Encounter Location Date Provider Diagnosis [facility] [address] [place] [address] 12/26/2024 Kimberly Qureshi Plan Of Treatment Next Appt Details Provider Name:Kimberly Qureshi , 01/09/2025 09:15:00 AM, [address] [place], [address], Progress Notes * Fran DELAROSA EDOB:1975 (49 yo M)Acc No.[id number]:12/26/2024 UNLOCKED PROGRESS NOTE Progress Notes Patient: Fran GAO Provider: Alona Qureshi M.D. :1975 A ge:49 Y S ex:Male Date:12/26/2024 Address:[address] [place], [place] [id number] Pcp:Angelica Porras Subjective: * Chief Complaints: * 1 . MD. * Medical History: Objective: * Vitals: Assessment: Plan: * Treatment: * * Electronic signature of Crow Qureshi MD, [id number] on 12/26/2024 at 09:03 AM EDT Sign off status: Pending Visit Status: C ANC (Cancelled) * Provider: Alona Qureshi M.D. Date: 0 12/26/2024 Generated for Lola miranda/Maikel/Joshua on: 0 12/26/2024 09:03 AM EDT
--- OUTSIDE RECORDS SUMMARY | 2024-12-26 09:03 | XMS_ITS | Clinical Summary ---
Author Organization [facility] tem Address [id number] [address] [place] [address] Care Team Providers Care Installer Helper Name Role Phone No Pcp, No Pcp Primary Care Provider Unavailabl e Allergies No known active allergies Medications apremilast (OTEZLA) 30 mg tablet Take 30 mg by mouth 2 (two) times a day. Active benzocaine-ment hoL (CHLORASEPTIC SORE THROAT) 6-10 mg lozenge Dissolve 1 lozenge in the mouth every 2 (two) hours as needed for sore throat. 18 tablet 09/02/2020 Active irbesartan (AVAPRO) 150 mg tablet Take 1 tablet (150 mg total) by mouth in the morning. 06/26/2024 Active XARELTO 20 mg tablet tablet Take 1 tablet (20 mg total) by mouth in the morning. 07/10/2024 Active Active Problems Problem Noted Date Diagnosed Date Pulmonary embolism 07/13/2024 Assessment & Plan (07/13/2024 2:18 PM EST): Continue anticoagulation and follow up with Heme-Onc in regard to hypercoagulability testing. Deep vein thrombosis (DVT) of proximal lower ext remity 07/13/2024 Assessment & Plan (07/13/2024 2:18 PM EST): Continue anticoagulation. Follow up with Heme-Onc for hypercoagulability testing. Encounters Date Type Department Care Team Description 10/05/2024 Telephone [facility] - Medical Oncology [address] [place] [address] Shanelle Tatum MD from Last 3 Months Social History Tobacco Use Types Packs/Day Years Used Date Smoking Tobacco: Every Day Cigarettes Smokeless Tobacco: Never Alcohol Use Standard Drinks/Week Comments Never 0 (1 standard drink = 0.6 oz pur e alcohol) AUDIT-C Answer Date Recorded Q1: How often do you have a drink containing alc ohol? Never 09/02/2020 Average Number of Drinks Not on file 021 Frequency of Binge Drinking Not on file 08/2020 Childcare Answer Date Recorded Childcare Unknown 09/02/2020 Employment Answer Date Recorded Employment Unknown 09/02/2020 Hunger Screening Answer Date Recorded Within the past 12 months we worried whether our food would run out before we got money to buy more. Never True 07/13/2024 Within the past 12 months th e food we bought just didn't last and we didn't have money to get more. Never True 07/13/2024 Purpose - Life Answer Date Recorded Purpose and direction in life Unknown Sex and Gender Information Value Date Recorded Sex Assigned at Not on file Legal Sex Male 11:56 AM EDT Gender Identity Not on file Sexual Orientation Not on file Last Filed Vital Signs Vital Sign Reading Time Taken Comments Blood Pressure 128/78 07/13/2024 11:37 AM EST Pulse 104 07/13/2024 11:37 AM EST Temperature 36.5 C (97.7 F) 07/13/2024 11:37 AM EST Respiratory Rate 16 07/13/2024 11:37 AM EST Oxygen Saturation 97% 07/13/2024 11:37 AM EST Inhaled Oxygen Concentration - - Weight 102.1 kg (225 lb) 07/13/2024 11:37 AM EST Height 193 cm (6' 3.98 ) 07/13/2024 11:37 AM EST Body Mass Index 27.4 07/13/2024 11:37 AM EST Plan of Treatment Health Maintenance Due Date Last Done Comments Depression Screening 1987 Tobacco Screening 1987 Adult BMI Follow Up Plan 1993 DTaP,Tdap and Td Vaccines (1 - Tdap) 1994 Influenza Vaccine 04/02/2025 Adult BMI Screening 07/13/2025 07/13/2024 Medical Devices Not on file Insurance [employer] Care Teams Installer Helper Relationship Specialty Start Date End Date No Pcp, No Pcp NISHANT Canas [id number] PCP - General Family Medicine 09/02/20
--- OUTSIDE RECORDS SUMMARY | 2024-12-26 09:03 | XMS_ITS | Encounter Summary ---
Author Organization [facility] Client24 [facility] tem Address [id number] [address] [place] [address] Care Team Providers Care Metallurgist Helper Name Role Phone No Pcp, No Pcp Primary Care Provider Unavailabl e Encounter Details Date Type Department Care Team (Late st Contact Info) Description 10/05/[address] [facility] - Medical Oncology [address] [facility] [phone] Shanelle Tatum MD [address], [place] [id number] Social History Tobacco Use Types Packs/Day Years [...] on file Sexual Orientation Not on file documented as of this encounter Miscellaneous Notes * Telephone Encounter - Kimberley Lj - 10/05/2024 2:18 PM EST Called pt to make a new pt consult with Dr Fu pt stated he is following with a Dr at [facility]. Pt has number if things change documented in this encounter Plan of Treatment Not on file documented as of this encounter Visit Diagnoses Not on filedocumented in this encounter Care Teams Metallurgist Helper Relationship Specialty Start Date End Date No Pcp, [place] [address] PCP - General Family Medicine 09/02/20 documented as of this encounter
--- NOTE | 2024-12-26 09:30 | CA_ITS ---
[facility] Test Date: 2024-12-26 Pat Name: CAM GALINDO Department: Room: - Gender: Male Engraving Operator: : 1975 Requested By: Kimberly Qureshi Order Number: [id number] Reading MD: NONA HARMON M.D. Interpretive Statements Summary of the findings: Right leg: YANICK= 1.23; TBI= 0.66. Doppler waveforms demonstrate multiphasic flow at the posterior tibial artery and monophasic flow at the dorsalis pedis artery. Left leg: YANICK= 1.21; TBI= 0.61. Doppler waveforms demonstrate multiphasic flow at the posterior tibial artery and biphasic flow at the dorsalis pedis artery. Pulse volume recordings: PVRs at the ankle levels show normal waveforms. Conclusion: Right and left ankle-brachial indices are suggestive of normal overall arterial flow at rest. Toe-brachial indices are suggestive of PAD. Pulse volume recordings indicate good overall resting arterial flow. Waveform analysis suggests abnormal bilateral dorsalis pedis arterial flow. The study shows evidence of likely mild small vessel PAD with normal overall arterial flow at rest. Electronically Signed On 12-26-2024 19:45:01 EDT by NONA HARMON M.D.
== END 2024-12-26 09:02 | disposition home or self-care (01) ==
LOC: CARD 09:01
PROVIDERS: Visit Provider Internal Medicine Hematology & Oncology
DX: I26.99 Other pulmonary embolism without acute cor pulmonale (principal); I73.9 Peripheral vascular disease, unspecified
CPT/HCPCS: 93922; 93971

== ENCOUNTER 2025-01-09 08:46 | Outpatient (RCR) | payer OTHER, SELFPAY | END 2025-01-10 08:10 | disposition home or self-care (01) | LOC: HEMC 08:46 | PROVIDERS: Visit Provider Internal Medicine Hematology & Oncology | DX: I26.99 Other pulmonary embolism without acute cor pulmonale (principal); L40.9 Psoriasis, unspecified; Z79.01 Long term (current) use of anticoagulants; F17.210 Nicotine dependence, cigarettes, uncomplicated; I82.402 Acute embolism and thrombosis of unspecified deep veins of left lower extremity; C44.90 Unspecified malignant neoplasm of skin, unspecified | CPT/HCPCS: G0463 ==

== ENCOUNTER 2025-06-12 09:08 | Outpatient (RCR) | payer OTHER, SELFPAY ==
[2025-06-12 09:34] LABS: Hematocrit 41.9 % (42.0-54.0); Hemoglobin 14.9 g/dL (14.0-18.0); Immature Granulocytes Abs Auto 0.02 10^3/uL (0.00-0.03); Immature Granulocytes Pct Auto 0.3 % (0.0-0.5); Lymphocytes Absolute Auto 2.4 10^3/uL (1.2-3.8); Mean Corpuscular HGB Conc 35.6 g/dL (29.9-35.2); Mean Corpuscular Hemoglobin 32.5 pg (25.9-34.0); Mean Corpuscular Volume 91.3 fL (80.0-94.0); Platelet Count 269 10^3/uL (150-450); Red Blood Count 4.59 10^6/uL (4.70-6.10); White Blood Count 6.8 10^3/uL (4.0-11.0)
[2025-06-12 09:55] LABS: Anion Gap 15.6; Blood Urea Nitrogen 16.0 mg/dL (7.0-18.0); Calcium 9.3 mg/dL (8.5-10.1); Carbon Dioxide 25.5 mmol/L (21.0-32.0); Chloride 100 mmol/L (98-107); Estimated GFR (African America >60 (>=60 mL/min/1.73m^2); Estimated GFR (Non-African Ame >60 (>=60 mL/min/1.73m^2); Glucose 98 mg/dL (74-106); Potassium 4.1 mmol/L (3.5-5.1); Sodium 137 mmol/L (136-145)
== END 2025-07-01 23:59 | disposition home or self-care (01) ==
LOC: HEMC 09:08
PROVIDERS: Visit Provider Internal Medicine Hematology & Oncology
DX: I26.99 Other pulmonary embolism without acute cor pulmonale (principal); Z79.01 Long term (current) use of anticoagulants; F17.210 Nicotine dependence, cigarettes, uncomplicated; L40.9 Psoriasis, unspecified; I82.402 Acute embolism and thrombosis of unspecified deep veins of left lower extremity; L97.828 Non-pressure chronic ulcer of other part of left lower leg with other specified severity; Z80.0 Family history of malignant neoplasm of digestive organs
CPT/HCPCS: 36415; 80048; 85025; G0463

== ENCOUNTER 2025-06-30 09:59 | Outpatient (OUT) | payer OTHER, SELFPAY ==
--- OUTSIDE RECORDS SUMMARY | 2024-08-10 04:15 | XMS_ITS ---
Author Organization [facility] in [place] Address [address] [place] [address] Care Team Providers Care Filtrose Crusher Name Role Phone Angelica Porras Primary Care Provider [phone] Kimberly Qureshi Unavailable [phone] REASON FOR VISIT MD New PT Hem Encounters Encounter Location Date Provider Diagnosis [facility] [address] [place] [id number] 08/10/2024 Kimberly Qureshi Plan Of Treatment No Information Progress Notes * Fran DELAROSA EDOB:1975 (50 yo M)Acc No.[id number]:08/10/2024 UNLOCKED PROGRESS NOTE Progress Notes Patient: Fran GAO :?Kimberly Qureshi M.D.:1975???Age:49 Y ???Sex:MaleDate:08/10/2024Phone:[phone]:[address] [place] [address]Mtu:Angelica Porras Subjective: * Chief Complaints: * 1 . New PT Hem. * Medical History: Objective: * Vitals: Assessment: Plan: * Treatment: * * Electronic signature of Kimberly Qureshi MD, [id number] on 06/30/2025 at 10:04 AM ESTSign off status: PendingVisit Status:?VOICEMSG (Voice) * Provider: Alona Qureshi M.D. Date: 0 08/10/2024 Generated for Printing/Faxing/eTransmitting on:?06/30/2025 10:04 AM EST
--- OUTSIDE RECORDS SUMMARY | 2024-09-14 03:30 | XMS_ITS ---
Author Organization [facility] in [place] Address [address] [place] [address] Care Team Providers Care Human Service Specialist Name Role Phone Angelica Porras Primary Care Provider Kimberly Qureshi Unavailable [phone] REASON FOR VISIT MD Encounters Encounter Location Date Provider Diagnosis [facility] [address] [place] [address] 09/14/2024 Kimberly Qureshi Plan Of Treatment No Information Progress Notes * Fran DELAROSA EDOB:1975 (50 yo M)Acc No.[id number]:09/14/2024 UNLOCKED PROGRESS NOTE Progress Notes Patient: Fran GAO :?Kimberly Qureshi M.D.:1975???Age:49 Y ???Sex:MaleDate:09/14/2024Phone:[phone]:[address]-[address]Rzq:Angelica Porras Subjective: * Chief Complaints: * 1 . MD. * Medical History: Objective: * Vitals: Assessment: Plan: * Treatment: * * Electronic signature of Kimberly Qureshi MD, [id number] on 06/30/2025 at 10:03 AM ESTSign off status: PendingVisit Status:?CANC (Cancelled) * Provider: Alona Qureshi M.D. Date: 0 09/14/2024 Generated for Printing/Faxing/eTransmitting on:?06/30/2025 10:03 AM EST
--- OUTSIDE RECORDS SUMMARY | 2024-09-14 06:00 | XMS_ITS ---
Author Organization The [facility] [place] Address [address] [place] [address] Care Team Providers Care Fleet Operations Manager Name Role Phone Angelica Porras Primary Care Provider [phone] Kimberly Qureshi Unavailable [phone] REASON FOR VISIT MD TELEHEALTH Encounters Encounter Location Date Provider Diagnosis [facility] [address] [place] [address] 09/14/2024 Kimberly Qureshi Plan Of Treatment No Information Progress Notes * Fran DELAROSA EDOB:1975 (50 yo M)Acc No.[id number]:09/14/2024 UNLOCKED PROGRESS NOTE Progress Notes Patient: Fran GAO :?Kimberly Qureshi M.D.:1975???Age:49 Y ???Sex:MaleDate:09/14/2024Phone:[phone]:[address]Rnt:Angelica Porras Subjective: * Chief Complaints: * 1 . TELEHEALTH. * Medical History: Objective: * Vitals: Assessment: Plan: * Treatment: * * Electronic signature of Kimberly Qureshi MD, [id number] on 06/30/2025 at 10:03 AM ESTSign off status: PendingVisit Status:?PEN (Pending) * Provider: Alona Qureshi M.D. Date: 0 09/14/2024 Generated for Printing/Faxing/eTransmitting on:?06/30/2025 10:03 AM EST
--- OUTSIDE RECORDS SUMMARY | 2024-12-26 06:30 | XMS_ITS ---
Author Organization The [facility] in [place] Address [address] [place] [address] Care Team Providers Care Property Claims Manager Name Role Phone Angelica Porras Primary Care Provider Kimberly Qureshi Unavailable [phone] REASON FOR VISIT MD Encounters Encounter Location Date Provider Diagnosis [facility] [address] [place] [address] 12/26/2024 Kimberly Qureshi Plan Of Treatment No Information Progress Notes * Fran DELAROSA EDOB:1975 (50 yo M)Acc No.[id number]:12/26/2024 UNLOCKED PROGRESS NOTE Progress Notes Patient: Fran GAO :?Kimberly Qureshi M.D.:1975???Age:49 Y ???Sex:MaleDate:12/26/2024Phone:[phone]:[address]Cts:Angelica Porras Subjective: * Chief Complaints: * 1 . MD. * Medical History: Objective: * Vitals: Assessment: Plan: * Treatment: * * Electronic signature of Kimberly Qureshi MD, [id number] on 06/30/2025 at 10:03 AM ESTSign off status: PendingVisit Status:?CANC (Cancelled) * Provider: Alona Qureshi M.D. Date: 0 12/26/2024 Generated for Printing/Faxing/eTransmitting on:?06/30/2025 10:03 AM EST
--- OUTSIDE RECORDS SUMMARY | 2025-01-09 04:15 | XMS_ITS ---
Author Organization [facility] in [place] Address [address] [place] [address] Care Team Providers Care Territory Account Executive Name Role Phone Angelica Porras Primary Care Provider Kimberly Qureshi Unavailable [phone] REASON FOR VISIT MD Encounters Encounter Location Date Provider Diagnosis [facility] Oncology [address] [place] [phone] 01/09/2025 Kimberly Qureshi Plan Of Treatment No Information Progress Notes * Fran DELAROSA EDOB:1975 (50 yo M)Acc No.[id number]:01/09/2025 UNLOCKED PROGRESS NOTE Progress Notes Patient: Fran GAO :?Kimberly Qureshi M.D.:1975???Age:49 Y ???Sex:MaleDate:01/09/2025Phone:[phone]:[address]Ook:Angelica Porras Subjective: * Chief Complaints: * 1 . MD. * Medical History: Objective: * Vitals: Assessment: Plan: * Treatment: * * Electronic signature of Kimberly Qureshi MD, [id number] on 06/30/2025 at 10:03 AM ESTSign off status: PendingVisit Status:?CONFPHONE (Voice) * Provider: Alona Qureshi M.D. Date: 0 01/09/2025 Generated for Printing/Faxing/eTransmitting on:?06/30/2025 10:03 AM EST"
--- OUTSIDE RECORDS SUMMARY | 2025-06-12 04:15 | XMS_ITS ---
Author Organization [facility] in [place] Address [address] [place] [address] Care Team Providers Care Yarn Weigher Name Role Phone Angelica Porras Primary Care Provider [phone] JITENDRA AMIN [phone] REASON FOR VISIT MD Encounters Encounter Location Date Provider Diagnosis [facility] Oncology [address] [place] [phone] 06/12/2025 JITENDRA AMIN Plan Of Treatment No Information Progress Notes * Fran DELAROSA EDOB:1975 (50 yo M)Acc No.[id number]:06/12/2025 UNLOCKED PROGRESS NOTE Progress Notes Patient: Fran GAO :?JITENDRA AMIN M.D.:1975???Age:49 Y ???Sex:MaleDate:06/12/2025Phone:[phone]:[address]Zdg:Angelica Porras Subjective: * Chief Complaints: * 1 . MD. * Medical History: Objective: * Vitals: Assessment: Plan: * Treatment: * * Electronic signature of JITENDRA AMIN MD on 06/30/2025 at 10:03 AM ESTSign off status: PendingVisit Status:?CONFPHONE (Voice) * Provider: Alona AMIN M.D. Date: 08/12/2024 Generated for Printing/Faxing/eTransmitting on:?06/30/2025 10:03 AM EST
--- OUTSIDE RECORDS SUMMARY | 2025-06-27 03:30 | XMS_ITS ---
Author Organization [facility] in [place] Address [address] [place] [address] Care Team Providers Care Embedded Developer Name Role Phone Angelica Porras Primary Care Provider Allergies Allergen (clinical drug ingredient) Drug/Non Drug Allergy documented on EMR Reaction Allergy Type Onset Date Status Information temporarily unavailable No Known Allergies (uncoded) Unknown Allergy Active REASON FOR VISIT Presents to office alone for yearly wellness exam. Has not taken b/p meds yet today Medications Medication SIG (Take, Route, Frequency, Duration) Notes Start Date End Date Status Triamcinolone Acetonide 0.1 % External; Duration : 15 Days ActiveTremfya 100 MG/ML1 mL Subcutaneous every 8 weeksActiveIrbesartan 300 MG Take 1 tablet by mouth once daily for 30 days; Duration: 30 daysActiveAspirin 81 81 MG1 tablet Orally Once a dayActive Social History Tobacco Use: Social History Observation Description Date Details (start date - stop date) Current Smoker NA - NA Tobacco Control (Standard) Question Answer Notes Tobacco use: Current smoker How many cigarettes a day do you smoke?5 or lessHow soon after you wake up do you smoke your first cigarette?Within 5 minutesAre you interested in quitting? Ready to quitAUDIT-C (Standard) Question Answer Notes Did you have a drink containing alcohol in the p ast year? Yes How often did you have six or more drinks on one occasion in the past year?Never (0 point)How many drinks did you have on a typical day when you were drinking in the past year?1 or 2 drinks (0 point)How often did you have a drink containing alcohol in the past year?2 to 3 times a week (3 points)Ooldkh2Edqghknltkgbrs Negative Vital Signs Weight 238.8 lbs 06/27/2025 Height 76 in 06/27/2025 Blood pressure systolic 150 mm Hg 06/27/20 25 Blood pressure diastolic 90 mm Hg 025 BMI 29.06 kg/m2 06/27/2025 Encounters Encounter Location Date Provider Diagnosis [facility] [address] [place] [address] 06/27/2025 Angelica Porras HTN (hypertension) I10 and Wellness examination Z00.00 Assessments Encounter Date Diagnosis (ICD Code) Assessment Notes Treatment Notes Treatment Clinical Notes Section Notes 06/27/2025 HTN (hypertension) (ICD-10 - I10 ) increase dose irbesartan BP check 2 weeks 06/27/2025Wellness examination (ICD-10 - Z00.00) ROS done exam done Dr Qureshi referred for colonosocopy, Dr Andre has lost a little weight smoking some has tapered down some, checking with job regarding nicotine patch coverage Plan Of Treatment Medication Medication Name Sig Start Date Stop Date Notes Irbesartan 300 MG Take 1 tablet by maria ines th once daily for 30 days; Duration: 30 days Treatment Notes Assessment Notes HTN (hypertension) increase dose irbesartan BP check 2 weeks Wellness examination ROS done exam done Dr Qureshi referred for colonosocopy, Dr Andre has lost a little weight smoking some has tapered down some, checking with job regarding nicotine patch coverage Pending Test Test Name Order Date HEMOGLOBIN A1C (GLYCO) 06/27/2025 INSULIN, TOTAL 06/27/2025 LIPID PANEL (CHOL/TRIG/HDL/LDL) 06/27/20 25 URIC ACID 06/27/2025 THYROID PANEL (T4/TSH/FREE T3) PSA, SCREENING 06/27/2025 CMP (COMP MET MAJOR) w/eGFR CKD-EPI 2024 CBC WITH DIFF 06/27/2025 Next Appt Details Follow Up: prn,1 Year, Reaso n: Progress Notes * Fran DELAROSA EDOB:1975 (50 yo M)Acc No.[id number]:06/27/2025 UNLOCKED PROGRESS NOTE Progress Note Patient: Fran GAO :?Angelica Porras ([facility]), CNPDOB:1975 ???Age:50 Y???Sex:MaleDate:06/27/2025Phone:[phone]:[address] [place]Jxsjt In:08:09 AM ESTCheck Out:08:36 AM EST Subjective: * Chief Complaints: * 1 . Presents to office alone for yearly wellness exam. Has not taken b/p meds yet today. * HPI: ???General:? off Xarelto on low dose Ramez ASA dcd from [facility] referral Nil for colonoscopy Dad had colon cancer, passed derm? for psoriasis, on injection takes lance seasonally, otc, gets some headaches. ???Depression Screening:?PHQ-9?Little interest or pleasure in doing things Not at all ?Feeling down, depressed, or hopeless?Not at all ?Trouble falling or staying asleep, or sleeping too much?Not at all ?Feeling tired or having little energy?Not at all ?Poor appetite or overeating?Not at all ?Feeling bad about yourself or that you are a failure, or have let yourself or your family down?Not at all ?Trouble concentrating on things, such as reading the newspaper or watching television?Not at all ?Moving or speaking so slowly that other people could have noticed; or the opposite, being so fidgety or restless that you have been moving arounda lot more than usual?Not at all ?Thoughts that you would be better off orof hurting yourself in some way?Not at all ?Total Score?0 * ROS: ???General/Constitutional:?Fever?denies.?Headache?denies.?Weight loss denies.?Ophthalmologic:?Discharge?denies.?Eye Pain?denies.?Itching and redness?denies.?ENT:?Nasal discharge?denies.?Nasal congestion?denies. Sore throat?denies.?Cardiovascular:?Chest tightness/ heavy pressure?denies.?Rapid heart rate?denies.?Swelling of extremities?denies.?Chest pain?denies.?Respiratory:?Productive cough?denies.?Chest pain?denies.?Cough?denies.?Shortness of breath?denies.?Wheezing?denies.?Gastrointestinal:?Abdominal pain?denies.?Constipation?denies.?Decreased appetite?denies.?Diarrhea?denies.?Nausea?denies.?Vomiting denies.?Genitourinary:?Urinary incontinence?denies.?Painful urination?denies.?Musculoskeletal:?Back pain?denies.?Neck pain?denies.?Muscle aches?denies.?Skin:?Rash?denies.?Skin lesion(s)?psoriasis, one patchon left LE only right now.? * Medical History: D vasile vein thrombosis (DVT). * Hospitalization/Major Diagno stic Procedure: T BH- Blood Clot 06/2024. * Family History: F ather: , colon cancer, diagnosed with Cancer, Hypertension. M other: alive, diagnosed with Hypertension. S ister(s): alive, diagnosed with Diabetes. D phonger(s): alive. Migrated Family History::Maternal history of Hypertension (V17.49);Paternal history of Hypertension (V17.49);. 2 sister(s) . 1 daughter(s) - healthy. . * Social History: ???Tobacco Use:?Tobacco Control (Standard)?Tobacco use:?Current smoker ?How many cigarettes a day do you smoke??5 or less ?How soon after you wake up do you smoke your first cigarette??Within 5 minutes ?Are you interested in quitting??Ready to quit ???Drug/Alcohol:?AUDIT-C (Standard)?Did you have a drink containing alcohol in the past year??Yes ?How often did you have six or more drinks on one occasion in the past year??Never (0 point) ?How many drinks did you have on a typical daywhen you were drinking in the past year??1 or 2 drinks (0 point) ?How often did you have a drink containing alcohol in the past year??2 to 3 times a week (3 points) ?Points?3 ?Interpretation?Negative * Medications: T aking Aspirin 81(Aspirin) 81 MG Tablet Delayed Release 1 tablet Orally Once a day , Taking Irbesartan 150 MG Tablet Take 1 tablet by mouth once daily for 30 days , Taking Tremfya(Guselkumab) 100 MG/ML Solution Prefilled Syringe 1 mL Subcutaneous every 8 weeks , Taking Triamcinolone Acetonide 0.1 % Ointment External , Discontinued HYDROcodone-Acetaminophen 5-325 MG Tablet TAKE 1 TABLET BY MOUTH EVERY 8 HOURS NEEDED FOR PAIN FOR 3 DAYS FOR SEVERE LEG PAIN FROM ACUTE DVT Oral , Discontinued Nicotine 14 MG/24HR Patch 24 Hour 1 patch to skin Transdermal Once a day , Notes to Pharmacist: followed by 7 mg patches for 2 weeks, Discontinued Nicotine 7 MG/24HR Patch 24 Hour 1 patch to skin Transdermal Once a day , Discontinued Xarelto(Rivaroxaban) 20 MG Tablet 1 tablet with food Orally Once a day , Medication List reviewed and reconciled with the patient * Allergies: N o Known Allergies: Allergy. Objective: * Vitals: W t:238.8lbs, Ht: 76 in, BP:150/90mm Hg, BMI:29.06Index, Ht-cm: 193.04 cm, Wt-k.32 kg. * Examination: ???General Examinations: ?GENERAL APPEARANCE:?alert and oriented,?in no acute distress.?EYES:?conjunctiva normal, sclera non-icteric.?EARS:?external auditory canals are patent. Tympanic membranes are pearly brewer and mobile.?NOSE:?normal external appearance.?LUNGS:?clear to auscultation bilaterally.?CARDIO:?regular rate and rhythm, S1, S2 normal.?ABDOMEN:?soft, nontender.?MUSCULOSKELETAL:?Gait and station normal.?SKIN:?warm and dry, one patch psoriasis to left LE about size half dollar.? Assessment: * Assessment: 1.?Wellness examination - Z00.00 (Primary)???2.?HTN (hypertension) - I10 ?? Plan: * Treatment: ?LAB: HEMOGLOBIN A1C (GLYCO) ?LAB: INSULIN, TOTAL ?LAB: LIPID PANEL (CHOL/TRIG/HDL/LDL) ?LAB: URIC ACID ?LAB: THYROID PANEL (T4/TSH/FREE T3) ?LAB: PSA, SCREENING ?LAB: CMP (COMP MET MAJOR) w/eGFR CKD-EPI ?LAB: CBC WITH DIFF Notes: ROS done exam done Dr Qureshi referred for colonosocopy, Dr Andre has lost a little weight smoking some has tapered down some, checking with job regarding nicotine patch coverage??2.?HTN (hypertension)? Refill Irbesartan Tablet, 300 MG, Take 1 tablet by mouth once daily for 30 days, 30 days, 30, Refills 11.?? Notes: increase dose irbesartan BP check 2 weeks?? * Preventive Medicine: ??Screenings/Counseling:?BMI ACTION PLAN?Above Normal BMI Follow-up?Dietary management education, guidance, and counseling See treatment section of progress note for complete details of management plan. ?TOBACCO ACTION PLAN?Patient counselled on the dangers of tobacco use and urged to quit.? 06/27/2025 . * Follow Up: alma ro[facility] de [facility],1 Year * * Electronic signature of Angelica Porras NP, HOOKER INSPECTOR.MANAGER [id number] on 06/30/2025 at 10:03 AM ESTSign off status: PendingVisit Status:?CHK (Check Out) * Provider: Alma Rosa Porras (TTC), MANAGER FLOOR Date: 08/27/2024 Generated for Printing/FaSafe N Clearg/eTransmitting on:?06/30/2025 10:03 AM EST History and Physical Notes * HPI (History of Present Illness) CategorySub-CategoryDetailNotesCategory NotesDepression ScreeningPHQ-9Little interest or pleasure in doing things: Not at allFeeling down, depressed, or hopeless: Not at allTrouble falling or staying asleep, or sleeping too much: Not at allFeeling tired or having little energy: Not at allPoor appetite or overeating: Not at allFeeling bad about yourself or that you are a failure, or have let yourself or your family down: Notat allTrouble concentrating on things, such as reading the newspaper or watching television: Not at allMoving or speaking so slowly that other people could have noticed; or the opposite, being so fidgety or restless that you have been moving around a lot more than usual: Not at allThoughts that you would be better off or of hurting yourself in some way: Not at allTotal Score: 0General off Xarelto on low dose Ramez ASA dcd from [facility] referral Nil for colonoscopy Dad had colon cancer, passed derm for psoriasis, on injection takes lance seasonally, otc, gets some headaches Examination CategorySub-CategoryDetailNotesCategory NotesGeneral ExaminationsGENERAL APPEARANCE:alert and oriented, in no acute distressEYES:conjunctiva normal, sclera non-ictericEARS:external auditory canals are patent. Tympanic membranes are pearly brewer and mobileNOSE:normal external appearanceTHROAT:CARDIO:regular rate and rhythm, S1, S2 normalLUNGS:clear to auscultation bilaterallyABDOMEN: soft, nontenderSKIN:warm and dry, one patch psoriasis to left LE about size half dollarBACK:MUSCULOSKELETAL:Gait and station normalLYMPH NODES:
--- OUTSIDE RECORDS SUMMARY | 2025-06-30 10:03 | XMS_ITS | Patient Health Record ---
Author Organization [facility] in [place] Address [address] [place] [address] Care Team Providers Care Accounts Payable Technician Name Role Phone Angelica Porras Primary Care Provider Titsu, Kimberly Unavailable [phone] TITUS KIMBERLY Unavailable [phone] Allergies Allergen (clinical drug ingredient) Drug/Non Drug Allergy documented on EMR Reaction Allergy Type Onset Date Status Information temporarily unavailable No Known Allergies (uncoded) Unknown Allergy Active Results Component Value Reference Range Notes CA ankle brachial indicies ( Not yet reviewed by provider) Interpretation: Performing Lab: Notes/Report: Source Facility: [place] [address] Cardiology Report Signed Patient: FRAN DELAROSA MR#: [id number] : 1975 Acct:[id number] Age/Sex: 49 / M ADM Date: 12/26/24 Loc: CARD Attending Dr: Kimberly Qureshi M.D. Ordering Physician: Kimberly Qureshi M.D. Date of Service: 12/26/24 Procedure(s): CA ankle brachial indicies Accession Number(s): [id number] cc: Kimberly Qureshi M.D.; Physician,Non-Staff [place] Test Date: 2024-12-26 Pat Name: FRAN DELAROSA Department: Room: - Gender: Male [employer]: : 1975 Requested By: Kimberly Qureshi Order Number: [id number] Reading MD: NONA HARMON M.D. Interpretive Statements Summary of the findings: Right leg: YANICK= 1.23; TBI= 0.66. Doppler waveforms demonstrate multiphasic flow at the posterior tibial artery and monophasic flow at the dorsalis pedis artery. Left leg: YANICK= 1.21; TBI= 0.61. Doppler waveforms demonstrate multiphasic flow at the posterior tibial artery and biphasic flow at the dorsalis pedis artery. Pulse volume recordings: PVRs at the ankle levels show normal waveforms. Conclusion: Right and left ankle-brachial indices are suggestive of normal overall arterial flow at rest. Toe-brachial indices are suggestive of PAD. Pulse volume recordings indicate good overall resting arterial flow. Waveform analysis suggests abnormal bilateral dorsalis pedis arterial flow. The study shows evidence of likely mild small vessel PAD with normal overall arterial flow at rest. Electronically Signed On 12-26-2024 19:45:01 EDT by NONA HARMON M.D. Dictated By: NONA HARMON Signed By: 12/26/24194412/26/241944 DD/ 0947 TD/TT: Algologist: Reason For Referral No Information Medications Medication SIG (Take, Route, Frequency, Duration) [...] year?2 to 3 times a week (3 points)Mxlodn1Tpzajzkmwkyqwi Negative Problems Problem Type SNOMED Code ICD Code Onset Dates Problem Status W/U Status Risk Notes Problem Information temporarily unavailable Psori asis (L40.9) ActiveconfirmedProblemInformation temporarily unavailablePulmonary embolism (I26.99)ActiveconfirmedProblemInformation temporarily unavailableHTN (hypertension) (I10)ActiveconfirmedProblemInformation temporarily unavailable Smoking (F17.200)Activeconfirmed Vital Signs Blood pressure diastolic 90 mm Hg 06/27/2025 Gomyyi40 in06/27/2025lood pressure mm Hg06/27/20256138Kurgty518.8 lbs 06/27/2025BMI29.06 kg/m206/27/2025 Encounters Encounter Location Date Provider Diagnosis [facility] [address] [place] [address] 06/27/2025 Angelica Porras HTN (hypertension) I10 and Wellness examination Z00.00 [facility] On[facility] [address] [place] [address] 08/10/2024 [facility] [address] [place] [address]/ [facility] [address] [place] [address]/[facility] [address] [place] [address]/[facility] [address] [place] [address]/4Pkatelyn PorrasKind[facility] [place] [address]/04/2024 Angelica Rodriguez F17.200[facility] [place] [address]/4Pkatelyn Porras Assessments Encounter Date Diagnosis (ICD Code) Assessment Notes Treatment Notes Treatment Clinical Notes Section Notes 06/27/2025 HTN (hypertension) (ICD-10 - I10 ) increase dose irbesartan BP check 2 weeks 06/27/2025Wellness examination (ICD-10 - Z00.00) ROS done exam done Dr Qureshi referred for colonosocopy, Dr Andre has lost a little weight smoking some has tapered down some, checking with job regarding nicotine patch coverage 07/10/2024Smoking (ICD-10 - F17.200) Plan Of Treatment Pending Test Test Name Order Date HEMOGLOBIN A1C (GLYCO) 06/27/2025 INSULIN, TOTAL 06/27/2025 LIPID PANEL (CHOL/TRIG/HDL/LDL) 06/27/20 25 URIC ACID 06/27/2025 THYROID PANEL (T4/TSH/FREE T3) 5 PSA, SCREENING 06/27/2025 CA ankle brachial indicies 12/26/2024 CMP (COMP MET MAJOR) w/eGFR CKD-EPI 2024 CBC WITH DIFF 06/27/2025 Insurance Providers Payer Name Payer Address Payer Phone Subscriber Number Group Number Insured Name Patient Relationship to Insured Coverage Start Date Coverage End Date [employer] [address] [address] [place] [address] [id number] Yamila Delarosa - patient is the insured Medical (General) History Medical History History ICD Code Deep vein thrombosis (DVT) I82.409 Hospitalization History Reason Date(Month/Year) [facility]- Blood Clot 06/2024
--- OUTSIDE RECORDS SUMMARY | 2025-06-30 10:03 | XMS_ITS | CCD ---
Author Organization [facility] Care Team Providers Care Data Center Consultant Name Role Phone No Pcp, No Pcp Primary Care Provider Unavailabl e Medications Current Medications MedicationDrug Class(es)DatesSig (Normalized)Sig (Original)apremilast 30 mg oral tablet (1 source)take 1 tablet by mouth twice dailyapremilast (OTEZLA) 30 mg tablet Take 30 mg by mouth 2 (two) times a day. Activebenzocaine 6 mg / menthol 10 mg oral lozenge (1 source)Standardized Chemical AllergenStart: 95-65-1514zpru 1 tablet by mouth every two hours as neededbenzocaine-menthoL (CHLORASEPTIC SORE THROAT) 6-10 mg lozenge Dissolve 1 lozenge in the mouth every2 (two) hours as needed for sore throat. 18 tablet 09/02/2020 Activeirbesartan 150 mg oral tablet (1 source)Angiotensin 2 Receptor BlockerStart: 70-43-6932vjdw 1 tablet by mouth in the morningirbesartan (AVAPRO) 150 mg tablet Take 1 tablet (150 mg total) by mouth in the morning. 06/26/2024 Activerivaroxaban 20 mg oral tablet (1 source)Factor Xa InhibitorStart: 92-16-8673ahgh 1 tablet by mouth in the morningXARELTO 20 mg tablet tablet Take 1 tablet (20 mg total) by mouth in the morning. 07/10/2024 Active Problems Problem ClassificationProblemDateDocumented DateEpisodic/ChronicPhlebitis; thrombophlebitis and thromboembolism (3 sources)Deep venous thrombosis of lower extremity; Translations: [Acute embolism and thrombosis of unspecified deep veins of unspecified proximal lower extremity]Onset: 465579-45-8672YntprqroVpdmbpeic heart disease (3 sources)Pulmonary embolism; Translations: [Other pulmonary embolism without acute cor pulmonale]Onset: 874425-68-7010Qdxihptp Vital Signs Date TimeVital SignValuePerforming AlwzfdhgsZpbcblvk24-43-5003 11:37-0500Body zofegw503 cmShanelle Tatum MD Work Phone: [phone] Mis Descu[facility]os Aivwgc46-40-6476 11:37-0500Body mass index (BMI) [Ratio]27.4 kg/l1IkvfbisShanelle Tatum MD Work Phone: [phone])[facility]12-12-2024 11:37-0500Body enaanwbeaan00.7 [degF]Shanelle Tatum MD Work Phone: [phone])[facility]12-12-2024 11:37-0500Body .06 kgShanelle Tatum MD Work Phone: [phone]12-12-2024 11:37-0500Diastolic blood qneakzcb42 mm[Hg]Shanelle Tatum MD Work Phone: [phone])[facility]12-12-2024 11:37-0500Heart rate 104 /minShanelle Tatum MD Work Phone: [phone])[facility]12-12-2024 11:37-0500 Respiratory rate16 /minShanelle Tatum MD Work Phone: [phone])[facility]12-12-2024 11:37-1670ChI5% (BldA) [Mass fraction]97 %Shanelle Tautm MD Work Phone: [phone])[facility] HospitalDkzvlm26-57-7130 11:37-0500Systolic blood hhctibli430 mm[Hg]Shanelle Tatum MD Work Phone: [phone] Encounters Encounter DateEncounter TypeCare ProviderFacilityStart: 07-13-2024 End: 39-31-5214Vbeooh outpatient new 45 minutesMofeng Tatum MD Work Phone: [phone])[facility] Phys[facility] Jobst Vascular SurgeryComment on above:Pulmonary embolism, other, unspecified chronicity, unspecified whether acute cor pulmonale present ([facility]-H[facility]); Deep vein thrombosis (DVT) of proximal lower extremity, unspecified chronicity, unspecified laterality ([facility]) Plan of Treatment DateCare ActivityDetailAuthorStart: 20-72-1298Mxkhziinw vaccinationInfluenza VaccineSumma Health [facility] SystemStart: 52-08-8967SSbL,Tdap and Td Vaccines (1 - Tdap)DTaP,Tdap and Td Vaccines (1 - Tdap)[facility] SystemStart: 24-02-5673Dpixl BMI Follow Up PlanAdult BMI Follow Up PlanSumma Health Wadsworth - [facility]ittman Medical Center SystemStart: 43-03-7470Obvub BMI ScreeningAdult BMI ScreeningSumma Health Wadsworth - [facility]itt[facility] Medical [facility] SystemStart: 98-45-0072Wzgkxgiqky ScreeningDepression ScreeningUNC Health Nashtart: 38-41-5031Aoxfrvb ScreeningTobacco ScreeningAdena Health System Payers DatePayer CategoryPayerPolicy [id number] Care Other (unspecified) [employer] Member Subscriber Plan / Payer (Effective 2022-Present) Name: Fran Delarosa Relation to Subscriber: Self Name: Fran Delarosa Payer ID: [id number] (NAIC) Type: Not on file Address: [address] [id number] Social History DateTypeDetailFacilityStart: 45-46-3702Bslrwni smoking status NHISSmokes tobacco dailySumma Health W[facility] - [facility] Medical [facility] SystemHistory of tobacco useCigarette SmokerSumma Health Wadsworth - [facility] Medical [facility] SystemStart: 59-14-3444Fhqijjd use and exposureSmokeless tobacco non-user [facility] SystemStart: 63-52-4826Fljfxiraq beverage intakeLifetime non- drinker (finding)[facility] SystemStart: 09-02-2020 End: 88-13-6313Scbdxuw of Social functionSumma Health Wadsworth - Rittman Medical Center SystemStart: 09-02-2020 End: 24-50-1250Boohoii Use Disorder Identification Test - Consumption [AUDIT-C] [facility] GladwinHow often to you have a drink containing alcohol?Never [facility] SystemAverage Number of DrinksNot on [facility] HospitalSm[facility] Hospitaltart: 98-55-1888Mys assigned at birthNot on [facility] Start: 07-71-6078RtuLlud (finding)[facility] Evaluation + Plan note 07-13-2024 Note Date & MeqwNjksHhluknor36-21-9463 Evaluation + Plan note* Assessment & Plan Note - Shanelle Tatum MD - 07/13/2024 2:18 PM ESTAssociated Problem(s): Pulmonary embolism (CMS-HCC) Continue anticoagulation and follow up with Heme-Onc in regard to hypercoagulability testing. [facility] Evaluation + Plan note 07-13-2024 Note Date & ChjkWoqdQidqsjuu38-67-3776 Evaluation + Plan note* Assessment & Plan Note - Shanelle Tatum MD - 07/13/2024 2:18 PM ESTAssociated Problem(s): Deep vein thrombosis (DVT) of proximal lower extremity (CMS-HCC) Continue anticoagulation. Follow up with Heme-Onc for hypercoagulability testing. [facility] Mis [facility] System Note 07-13-2024 Note Date & OoqiVlybElkpqlgh06-06-7195 Miscellaneous Notes* Assessment & Plan Note - Shanelle Tatum MD - 07/13/2024 2:18 PM ESTAssociated Problem(s): Pulmonary embolism (CMS-HCC) Continue anticoagulation and follow up with Heme-Onc in regard to hypercoagulability testing. * Assessment & Plan Note - Shanelle Tatum MD - 07/13/2024 2:18 PM EST Associated Problem(s): Deep vein thrombosis (DVT) of proximal lower extremity ([facility]) Continue anticoagulation. Follow up with Heme-Onc for hypercoagulability testing. documented in this encounterAdena Health System History of Present illness Narrative 07-13-2024 Note Date & TgkcJuolJoceugdj66-21-9382 History of Present illness Narrative* Shanelle Tatum MD - 07/13/2024 11:30 AM EST Images from the original note were not [...] No clear provoking factor. He lives at [place] and it was like to see [place] [facility] in regard to his hypercoagulability testing.. Review of Systems: Review of Systems Constitutional: Negative. HENT: Negative. Respiratory: Negative. Cardiovascular: Negative. Gastrointestinal: Negative. Endocrine: Negative. Genitourinary: Negative. Musculoskeletal: Negative. Skin: Negative. Neurological: Negative. Hematological: Negative. Medications: Current Outpatient Medications on File Prior to Visit Medication Sig Dispense Refill benzocaine-menthoL (CHLORASEPTIC SORE THROAT) 6-10 mg lozenge Dissolve 1 lozenge in the mouth every2 (two) hours as needed for sore throat. [...] Assessment and Plan: Problem List Pulmonary embolism ([facility]) Current Assessment & Plan Continue anticoagulation and follow up with Heme-Onc in regard to hypercoagulability testing. Relevant Orders [facility] [place], [place] Deep vein thrombosis (DVT) of proximal lower extremity ([facility]) Current Assessment & Plan Continue anticoagulation. Follow up with Heme-Onc for hypercoagulability testing. Relevant Orders [facility] [place], [place] Fran was seen today for new patient for pe and dvt lower extremity. Diagnoses and all orders for this visit: Pulmonary embolism, other, unspecified chronicity, unspecified whether acute cor pulmonale present ([facility]) - [facility] [place] [place] - [facility] [place], [place]; Future Deep vein thrombosis (DVT) of proximal lower extremity, unspecified chronicity, unspecified laterality ([facility] - [facility] [place], [place] - [facility] [place], [place]; Future Shanelle Tatum MD, FRIEDA, RPVI, FSVS, FACS [facility] This note was created with the assistance of a speech recognition program. While intending to generate a timely document that accurately reflects the content of the visit, no guarantee can be provided that every grammatical or spelling mistake has been or will be identified or corrected. Thank you for your understanding. documented in this encounterSumma Health W[facility] System Evaluation note Note Date & TypeNoteFacilityEvaluation note* Diagnosis Pulmonary embolism, other, unspecified chronicity, unspecified whether acute cor pulmonale present ([facility]) Deep vein thrombosis (DVT) of proximal lower extremity, unspecified chronicity, unspecified laterality ([facility]) documented in this encounter [facility] System Instructions Note Date & TypeNoteFacilityInstructionsNot on filedocumented in this encounter [facility] Additional Source Comments Reason for Visit (unrecogniz ed section and content) ReasonCommentsNew patient for Pe and Dvt lower extremityOnly pain is when standing for long period of time rates 4/10 left legSpecialtyDiagnoses / ProceduresReferred By ContactReferred To ContactVascular Surgery Diagnoses Pulmonary embolism, other, unspecified chronicity, unspecified whether acute cor pulmonale present ([facility]) Deep vein thrombosis (DVT) of proximal lower extremity, unspecified chronicity, unspecified laterality ([facility]) Zohreh Olvera, Shanelle Worthy MD [address] [place] [address] Phone: tel:[phone] fax: Referral IDStatusReasonStart DateExpiration DateVisits RequestedVisits [id number] Review Specialty Services Required Care Teams (unrecognized sec tion and content) Team MemberRelationshipSpecialtyStart DateEnd Date No Pcp, [place] [address] PCP - GeneralFamily Medicine09/02/20 FOR RECORDS PERTAINING TO PATIENTS WHO ARE [...] BE BASED ON THE PRIMARY CLINICAL RECORDS. [facility] [employer] [facility]. provides no warranty or guarantee of the accuracy or completeness of information in this document.
--- OUTSIDE RECORDS SUMMARY | 2025-06-30 10:04 | XMS_ITS | Clinical Summary ---
Author Organization [facility] tem Address [id number] [address] [place] [address] Care Team Providers Care Travel Writer Name Role Phone No Pcp, No Pcp Primary Care Provider Unavailabl e Allergies No known active allergies Medications MedicationSigDispense QuantityRefillsLast FilledStart DateEnd DateStatus apremilast (OTEZLA) 30 mg tablet Take 30 mg by mouth 2 (two) times a day.Active benzocaine-menthoL (CHLORASEPTIC SORE THROAT) 6-10 mg lozenge Dissolve 1 lozenge in the mouth every 2 (two) hours as needed for sore throat. 18 tablet 09/02/2020ctive irbesartan (AVAPRO) 150 mg tablet Take 1 tablet (150 mg total) by mouth in the morning.06/26/2024ctive XARELTO 20 mg tablet tablet Take 1 tablet (20 mg total) by mouth in the morning.07/10/2024ctive Active Problems ProblemNoted DateDiagnosed DatePulmonary wdbyezpd54/12/2024 Assessment & Plan (07/13/2024 2:18 PM EST): Continue anticoagulation and follow up with Heme-Onc in regard to hypercoagulability testing. Deep vein thrombosis (DVT) of proximal lower ltvcyweiz57/12/2024 Assessment & Plan (07/13/2024 2:18 PM EST): Continue anticoagulation. Follow up with Heme-Onc for hypercoagulability testing. Social History Tobacco UseTypesPacks/DayYears UsedDateSmoking Tobacco: Every DayCigarettes Smokeless Tobacco: NeverAlcohol UseStandard Drinks/WeekCommentsNever0 (1 standard drink = 0.6 oz pure alcohol)AUDIT-CAnswerDate RecordedQ1: How often do you have a drink containing alcohol?Never09/02/2020verage Number of DrinksNot on file09/02/2020Frequency of Binge DrinkingNot on file09/02/2020hildcareAnswer Date VuvfcufuUunkpifidGntqmfw70/01/2021mploymentAnswerDate RecordedEmployment Mplxgpc5109/02/2020Hunger ScreeningAnswerDate RecordedWithin the past 12 months we worried whether our food would run out before we got money to buy more.Never True07/13/2024Within the past 12 months the food we bought just didn't last and we didn't have money to get more.Never True07/13/2024urpose - LifeAnswerDate RecordedPurpose and direction in eylgSqygxuk32/01/2021ex and Gender Information ValueDate RecordedSex Assigned at BirthNot on fileLegal VbaTfbk3803/07/2015 11:56 AM EDTGender IdentityNot on fileSexual OrientationNot on file Last Filed Vital Signs Vital SignReadingTime TakenCommentsBlood Leakpaag527/7807/13/2024 11:37 AM EST Ckueh73781/12/2024 11:37 AM NRQNftkoofcwlg95.5 ??C (97.7 ??F)07/13/2024 11:37 AM ESTRespiratory Ymnp279709/13/2023 11:37 AM ESTOxygen Hepiekpcvf26%07/13/2024 11:37 AM ESTInhaled Oxygen Concentration--Uvghwl121.1 kg (225 lb)07/13/2024 11:37 AM XWZKklahy876 cm (6' 3.98 )07/13/2024 11:37 AM ESTBody Mass Index27.412 11:37 AM EST Plan of Treatment Health MaintenanceDue DateLast DoneCommentsDepression Glmfyzhdw58/19/1987Tobacco Lwysazkja45/19/1987Adult BMI Follow Up Plan1993DTaP,Tdap and Td Vaccines (1 - Tdap)1994Zoster (Shingles) Vaccine (1 of 2)1994Influenza Lmvrrbp2104/02/2025dult BMI Cgunstadm60 Medical Devices Not on file Insurance Care Teams Team MemberRelationshipSpecialtyStart DateEnd Date No Pcp, No Pcp NISHANT Canas [address] PCP - GeneralFamily Medicine09/02/20
[2025-06-30 10:36] LABS: Hematocrit 45.6 % (42.0-54.0); Hemoglobin 15.8 g/dL (14.0-18.0); Immature Granulocytes Abs Auto 0.02 10^3/uL (0.00-0.03); Immature Granulocytes Pct Auto 0.2 % (0.0-0.5); Lymphocytes Absolute Auto 3.0 10^3/uL (1.2-3.8); Mean Corpuscular HGB Conc 34.6 g/dL (29.9-35.2); Mean Corpuscular Hemoglobin 31.8 pg (25.9-34.0); Mean Corpuscular Volume 91.8 fL (80.0-94.0); Platelet Count 304 10^3/uL (150-450); Red Blood Count 4.97 10^6/uL (4.70-6.10); White Blood Count 9.8 10^3/uL (4.0-11.0)
[2025-06-30 11:35] LABS: Chloride 101 mmol/L (98-107); Potassium 4.1 mmol/L (3.5-5.1); Sodium 136 mmol/L (136-145)
[2025-06-30 11:36] LABS: Alanine Aminotransferase 51 U/L (16-63); Anion Gap 10.6; Aspartate Amino Transferase 27 U/L (15-37); Blood Urea Nitrogen 11.0 mg/dL (7.0-18.0); Calcium 9.3 mg/dL (8.5-10.1); Carbon Dioxide 28.5 mmol/L (21.0-32.0); Estimated GFR (African America >60 (>=60 mL/min/1.73m^2); Estimated GFR (Non-African Ame >60 (>=60 mL/min/1.73m^2); Glucose 103 mg/dL (74-106); Uric Acid 5.5 mg/dL (3.5-7.2)
[2025-06-30 11:37] LABS: Albumin Globulin Ratio 1.0; Albumin Level 4.1 g/dL (3.4-5.0); Alkaline Phosphatase 104 U/L (46-116); Cholesterol 208 mg/dL (<=200); Free T3 3.06 pg/mL (2.18-3.98); Globulin 4.0 g/dL; HDL Cholesterol 33 mg/dL (40-60); Thyroid Stimulating Hormone 2.914 uIU/mL (0.358-3.740); Total Protein 8.1 g/dL (6.4-8.2); Triglycerides 159 mg/dL (<=150); VLDL CHOLESTEROL 31.8 mg/dL
== END 2025-06-30 10:00 | disposition home or self-care (01) ==
PROVIDERS: PCP Family Medicine; Visit Provider Nurse Practitioner Family
DX: Z00.00 Encounter for general adult medical examination without abnormal findings (principal); Z12.5 Encounter for screening for malignant neoplasm of prostate
CPT/HCPCS: 36415; 80053; 80061; 83036; 83525; 84436; 84443; 84481; 84550; 85025; G0103